=== PATIENT | male | born 1955 | race Caucasian/White ===

== ENCOUNTER 2016-07-31 10:00 | Inpatient (IN) | payer OTHER, MEDICARE ==
[~2016-07-31] VITALS: Ht 175.3 cm; Wt 77.7 kg
[~2016-07-31 10:00] MED LIST: AC325T PO; ALBU10PO INH; AMIT10TA6 PO; ASPI-860 PO; CLPD75T PO; DM/P295L13 PO; DOXE10CA PO; FAMO20TA13 PO; FENO160T PO; FLAX100031 PO; GEMF600T3 PO; GUAI-557 PO; HCA25SU PR; HYDR-3708 PO; Hydromorphone Hcl PO; LOSA1TAB69 PO; NF-ESOM40C PO; NITR0.4T7 SL; OMEP20CA12 PO; OMEP40CA36 PO; OMG1KC PO; ONDAN4ODT PO; ONDN4T PO; OXYC1TAB6 PO; OXYC1TAB8 PO; PANCREAZE 10,51 EACH PO; PANT40TA3 PO; PRAV20TA PO; SUCR1TAB29 PO; TAMS0.4C2 PO
[2016-07-31] MEDS ORDERED: ONDANSETRON 2 MG/ML (Z0FRAN) 2 ML VIAL IV ONE ×2 (10:20→11:45)
[2016-07-31] MEDS ORDERED: SODIUM CHLORIDE FLUSH 10 ML SYR IV PRN (10:20)
[2016-07-31] MEDS ORDERED: SODIUM CHLORIDE FLUSH 3 ML SYR IV PRN (10:20)
[2016-07-31] MEDS ORDERED: FENT1PAT10 TD (10:25)
[2016-07-31] MEDS ORDERED: HYDROmorphone 2 MG/ML (DILAUDID) 1 ML SYRINGE IV ONE ×3 (10:30→13:35)
[2016-07-31 10:34] LABS: MEAN CORPUSCULAR HEMOGLOBIN 30.9 PG (26.0-34.0); MEAN CORPUSCULAR HGB CONC 35.3 g/dL (31.0-37.0); MEAN CORPUSCULAR VOLUME 88 FL (80-100); MEAN PLATELET VOLUME 8.4 FL (6.0-9.5); PLATELET COUNT 631 10^3uL (150-450); WHITE BLOOD COUNT 21.67 10^3uL (4.0-11.0)
[2016-07-31 10:41] LABS: BAND NEUTROPHILS % 1 % (0-6); EOSINOPHILS % 1 % (0-4); LYMPHOCYTES # 2.6 #; MONOCYTES # 1.3 #; MONOCYTES % 6 % (3-11); RBC MORPH NORMAL (NORMAL); SEGMENTED NEUTROPHILS % 79 % (51-67); TOTAL CELLS COUNTED 100
[2016-07-31 10:46] LABS: ALBUMIN 4.4 g/dL (3.4-5.0); ANION GAP 14.9 MEQ/L (3-15); CALCULATED IONIZED CALCIUM 4.1 mg/dL (3.8-4.6); TOTAL PROTEIN 7.8 g/dL (6.4-8.5)
[2016-07-31 13:41] LABS: BILIRUBIN,URINE Negative (Negative); CLARITY,URINE Clear; COLOR,URINE Yellow; GLUCOSE, URINE (UA) Negative (Negative); LEUKOCYTE ESTERASE ,URINE Negative (Negative); UROBILINOGEN,URINE 0.2 mg/dL (0.2-1.0)
--- NOTE | 2016-07-31 13:41 | Diagnostic Imaging Report ---
INDICATION: Pain. FINDINGS: The lungs are clear. There is no evidence for pleural fluid, no free air beneath the diaphragms, no failure. The bowel gas pattern is unremarkable. There are postoperative changes in the right upper quadrant. IMPRESSION: No acute-appearing abnormality. Dictated by: Dictated on workstation # [id number]
[2016-07-31 13:42] LABS: PH,URINE >9.0 (5.0 - 8.0)
--- NOTE | 2016-07-31 13:44 | Diagnostic Imaging Report ---
PROCEDURE: CT abdomen and pelvis with contrast. TECHNIQUE: Multiple contiguous axial images were obtained through the abdomen and pelvis after administration of intravenous contrast. INDICATION: Severe abdominal pain with history of pancreatitis. Exam compared to 03/02/2016. FINDINGS: There has been presumed recurrence of features of pancreatitis, most notably the distal body and tail although the severity of peripancreatic edema and pancreatic thickening are improved when compared to the prior. There is only slight thickening along the left lateral conal fascia with ectasia of the pancreatic duct diffusely. Fatty infiltration of liver noted but improved when compared to the previous exam. Some fluid within the stomach which was not grossly overdilated and no acute fluid collection or pseudocyst and there is no abdominopelvic ascites. Some fluid within the colonic lumen with the colonic mucosa showing mild hyperenhancement. Nonspecific colitis may be present. No large bowel wall thickening or pericolonic edema, however. Some scattered noninflamed sigmoid diverticuli. Infrarenal atherosclerotic aortic ectasia dilates to measure 2.4 cm just prior to its bifurcation without rupture or change. The urinary bladder unremarkable. The kidneys unobstructed and normal. There is no bile duct dilatation. No stones along the course of the nondilated extrahepatic common duct. IMPRESSION: Features suggest mild active pancreatitis, distal body and tail without ascites or acute fluid collection. Improvements in fatty liver with no biliary dilatation. Fluid in the stomach as well as fluid in the large bowel. The large bowel showing questionable findings of mucosal hyperenhancement. Mild colitis could not be excluded. No obstruction, no free air. No findings suggestive of gastric outlet obstruction. Dictated by: Dictated on workstation # [id number]
[2016-07-31 13:50] LABS: RBC,URINE 0-2 /HPF; URINE CENTRIFUGED VOLUME 12 mL
[2016-07-31] MEDS ORDERED: PROMETHAZINE HCL INJ 12.5 MG in SODIUM CHLORIDE 25 ML IV PRN (15:15)
--- NOTE | 2016-07-31 15:15 | NUR ---
ARRIVES PER CART ACCOMPANIED BY ED STAFF AND SPOUSE. ALERT AND ORIENTED X4. SKIN W/P/D. RESP REGULAR AND UNLABORED.
[2016-07-31 15:35] VITALS: BP 126/87
[2016-07-31] MEDS: LACTATED RINGERS 1,000 ML IV SCH ×2 (15:59→21:37)
[2016-07-31] MEDS ORDERED: PANTOPRAZOLE 40 MG (PROTONIX) VIAL IV ONE (16:03)
[2016-07-31] MEDS: HYDROmorphone 1 MG/ML (DILAUDID) SYRINGE IV PRN ×2 (16:07→20:07)
[2016-07-31] MEDS: PANTOPRAZOLE IV 40 MG in SODIUM CHLORIDE FLUSH 10 ML IV SCH (16:08)
--- NOTE | 2016-07-31 16:58 | NUR ---
Pt is awake sitting up in bed, appears to be moaning, SPO2 93% on room air.
[2016-07-31] MEDS ORDERED: NITROGLYCERIN SUBLINGUAL 0.4 MG (NITROQUICK) TABLET SL PRN (17:25)
[2016-07-31] MEDS ORDERED: ALBUTEROL HFA (VENTOLIN HFA) COMMON CANNISTER IH PRN (17:25)
[2016-07-31] MEDS ORDERED: DOCUSATE SODIUM 100 MG (COLACE) CAP PO PRN (17:35)
[2016-07-31] MEDS ORDERED: MAGNESIUM HYDROXIDE 80MG/ML (MILK OF MAGNESIA) 30 ML UDC PO PRN (17:35)
--- NOTE | 2016-07-31 17:40 | History and Physical (E) ---
History & Physical PCP: Winston Rizo MD CC: Abdominal pain, nausea, vomiting HPI Peter Bryan is a 61 year old male admitted from ED 07/31 where he presented with complaint of LUQ pain and nausea/vomiting which he felt was a flare of pancreatitis. Vitals were unremarkable but WBC was 21.67 with 79% N and 1% bands , CRP 1.20, Amylase 134, Lipase 843, and CT was consistent with pancreatitis. He was given NS bolus, hydromorphone, ondansetron, and was admitted for further management. On arrival to unit, awake, alert, interactive, oriented. Starting to feel better in terms of pain and nausea. Able to relate history. Onset of abdominal and nausea this early AM. Pain started around 0500 and started vomiting 0800. Tried taking ondansetron and oral pain medication but couldn't get control of symptoms, especially pain. [place] it was getting worse so came to ED. Uncertain trigger. No alcohol at all. No new foods. Has had no fever/chills. No diarrhea. In fact, is more often constipated and takes milk of magnesia regularly because of chronic narcotic use. Regarding GI issues, had been seeing Dr. Williamson at gastroenterology in [place]. Hasn't been for follow-up in a while, but has been stable until today. PMH * Chronic pancreatitis * Rheumatic fever * Pericarditis * Hiatal Hernia * History of hydrocephalus * PVD * Insomnia * Barretts esophagus * Esophageal Spasms * HTN * HLD * GERD * History of diarrhea * Urine hesitancy * AAA 1.5 cm * Hemorrhoids * Asthma PSH * Cholecystectomy 07-05-14 * Ventricular shunt for hydrocephalus in 1999 * Appendectomy * Tonsillectomy * EGD * Colonoscopy * Left leg stent * ERCP? ALLERGIES: Please see list at end of report. HOME MEDICATIONS: Please see list at end of report. FH Mother had a stroke, HTN, Diabetes, cancer. Father had brain cancer, Sister had HTN, diabetes, of an VT. Parents and sister are . SH , History of smoking but no alcohol, no history of drug abuse. Had worked at [employer] but now on disability. ROS CONSTITUTION: Weight has been down about 10 pounds for the last 1 month. HEENT: Feels his visual acuity is getting worse, but no acute changes. No sores in mouth, sore throat. CV: Some intermittent chest discomfort. PULM: Some cough. GI: Per HPI, exam. : Slow urine stream. MS: No new muscle or joint aches and pains. NEURO: Left arm numbness sometimes after falling asleep. INTEG: Some intermittent paronychia. But currently, not inflamed. ENDO: No heat or cold intolerance. No polydipsia or polyuria. HEME/LYMPH: No easy bruising or bleeding. No swollen glands. PSYCH: No change in mood or behavior. OBJECTIVE Vital Signs Date Time Temp Pulse Resp B/P Pulse Ox O2 Delivery O2 Flow Rate FiO2 07/31/16 11:02 88 2 07/31/16 10:02 98.6 61 20 118/76 GEN: Awake, alert, oriented, NAD at present. HEENT: EOMI, PERRL, dry oral mucosa. CV: RRR S1 S2 normal with no murmur LUNGS: CTA B with diminished bases, no R/R/W. ABD: Soft, mildly distended, tender diffusely. Hypoactive bowel sounds. EXTR: No C/C/E. Normal peripheral pulses. INTEG: No rash. Bronze complexion. NEURO: No focal motor neuro deficit. Laboratory Results-14 Days 07/31/16 10:25: Absolute Band Neutrophils 0.2, Alanine Aminotransferase (ALT/SGPT) 34, Albumin 4.4#, Albumin/Globulin Ratio 1.294, Alkaline Phosphatase 73, Amylase Level 134H , Anion Gap 14.9, Aspartate Amino Transf (AST/SGOT) 39H, BUN/Creatinine Ratio 9L , Band Neutrophils % 1, Basophils # (Auto) , Basophils # (Manual) 0.2, Basophils % (Manual) 1, Basophils (%) (Auto) , Blood Morphology Comment Normal, Blood Urea Nitrogen 11, C-Reactive Protein 1.20H, Calcium Level 9.8, Calcium/ Ionized Calcium Ratio 4.1, Calculated Osmolality 268L, Carbon Dioxide Level 30H , Chloride Level 98, Creatinine 1.27, Differential Total Cells Counted 100, Eosinophils # 0.2, Eosinophils # (Auto) , Eosinophils % (Manual) 1, Eosinophils (%) (Auto) , Estimat Glomerular Filtration Rate 70.2, Estimated GFR (Non- 58.1, Glucose Level 107, Hematocrit 43.90, Hemoglobin 15.5, Lipase 843H, Lymphocytes # 2.6, Lymphocytes # (Auto) , Lymphocytes % (Manual) 12L, Lymphocytes (%) (Auto) , Mean Corpuscular Hemoglobin 30.9, Mean Corpuscular Hemoglobin Concent 35.3, Mean Corpuscular Volume 88, Mean Platelet Volume 8.4, Monocytes # 1.3, Monocytes # (Auto) , Monocytes % (Manual) 6, Monocytes (%) (Auto) , Neutrophils # 17.1, Neutrophils # (Auto) , Neutrophils (% ) (Auto) , Platelet Count 631H, Potassium Level 3.7, Red Blood Count 5.02, Red Cell Distribution Width 14.2, Segmented Neutrophils % 79H, Sodium Level 139, Total Bilirubin 0.9#, Total Protein 7.8, White Blood Count 21.67H 07/31/16 13:20: Urine Bacteria None seen, Urine Bilirubin Negative, Urine Clarity Clear, Urine Collection Type Clean catch, Urine Color Yellow, Urine Glucose (UA) Negative, Urine Hyaline Casts Rare, Urine Ketones Negative, Urine Leukocyte Esterase Negative, Urine Nitrite Negative, Urine Protein TraceH, Urine RBC 0-2, Urine RBC (Auto) Negative, Urine Specific [place] 1.015, Urine Squamous Epithelial Cells 0-2, Urine Urobilinogen 0.2, Urine WBC None seen, Urine pH >9.0, Volume Urine Centrifuged 12 ml 07/31/16 13:35: Stool Occult Blood Negative IMAGING 07/31/16 ACUTE ABD SERIES INDICATION: Pain. FINDINGS: The lungs are clear. There is no evidence for pleural fluid, no free air beneath the diaphragms, no failure. The bowel gas pattern is unremarkable. There are postoperative changes in the right upper quadrant. IMPRESSION: No acute-appearing abnormality. 07/31/16 CT ABDOMEN/PELVIS W PROCEDURE: CT abdomen and pelvis with contrast. TECHNIQUE: Multiple contiguous axial images were obtained through the abdomen and pelvis after administration of intravenous contrast. INDICATION: Severe abdominal pain with history of pancreatitis. Exam compared to 03/02/2016. FINDINGS: There has been presumed recurrence of features of pancreatitis, most notably the distal body and tail although the severity of peripancreatic edema and pancreatic thickening are improved when compared to the prior. There is only slight thickening along the left lateral conal fascia with ectasia of the pancreatic duct diffusely. Fatty infiltration of liver noted but improved when compared to the previous exam. Some fluid within the stomach which was not grossly overdilated and no acute fluid collection or pseudocyst and there is no abdominopelvic ascites. Some fluid within the colonic lumen with the colonic mucosa showing mild hyperenhancement. Nonspecific colitis may be present. No large bowel wall thickening or pericolonic edema, however. Some scattered noninflamed sigmoid diverticuli. Infrarenal atherosclerotic aortic ectasia dilates to measure 2.4 cm just prior to its bifurcation without rupture or change. The urinary bladder unremarkable. The kidneys unobstructed and normal. There is no bile duct dilatation. No stones along the course of the nondilated extrahepatic common duct. IMPRESSION: Features suggest mild active pancreatitis, distal body and tail without ascites or acute fluid collection. Improvements in fatty liver with no biliary dilatation. Fluid in the stomach as well as fluid in the large bowel. The large bowel showing questionable findings of mucosal hyperenhancement. Mild colitis could not be excluded. No obstruction, no free air. No findings suggestive of gastric outlet obstruction. ASSESSMENT Peter Bryan is a 61 year old male admitted from ED 07/31 with recurrent acute pancreatitis in the setting chronic pancreatitis. He had elevated WBC but did not meet SIRS criteria. PLAN * Acute on Chronic Pancreatitis: BISAP 0. Bowel rest, IVF, treat pain and nausea. Resume pancreatic enzymes when taking PO. * Abdominal Pain: Ketorolac scheduled, hydromorphone PRN. Note he as chronic pain meds including fentanyl patch. * Nausea/Vomiting: Ondansetron, promethazine. * Thrombocytosis: Chronic. Observe. * F/E/N: IVF. Peripheral IV. NPO. * Prophylaxis: Enoxaparin * Code Status: Full * Dispo: Inpatient, expecting 3 day stay. CHRONIC ISSUES Some PO meds on hold until tolerating PO. * Tobacco abuse: Nicotine patch. 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 * PVD: Clopidogrel, aspirin * COPD: Albuterol * Insomnia: Amitriptyline * GERD, Gilman's Esophagus: Sub pantoprazole for famotidine. * Hypertriglyceridemia: Fenofibrate, flaxseed oil, omega 3. * BPH: History of taking tamsulosin * Esophageal Spasm: Nitro PRN. * Insomnia: Amitriptyline * Chronic Abdominal Pain, Chronic Pancreatitis: Fentanyl patch. Pancrelipase. Allergies/Home Medications Allergies: Coded Allergies: Xpidrjr-Pjj-Nvs Reductase Inhibitor (Verified Allergy, Intermediate, Hemorrhoids, bloody stools, 06/14/16) Uncoded Allergies: TAPE (Adverse Reaction, Mild, SKIN BREAKDOWN, 12/22/13) Reported Home Medications Scheduled Amitriptyline HCl (Amitriptyline HCl) 10 MG PO HS (Reported) Aspirin (Aspirin) 81 MG PO DAILY (Reported) Clopidogrel Bisulfate (Clopidogrel) 75 MG PO DAILY (Reported) Fenofibrate (Fenofibrate) 160 MG PO DAILY (Reported) Fentanyl (Fentanyl Patch 75mcg/hr) 1 EACH TD NEEDED (Reported) Flaxseed Oil (Flax Seed Oil) 1,000 MG PO DAILY (Reported) Lipase/Protease/Amylase (Pancreaze 10,[address]) 1 EACH PO TIDWM (Reported ) Ray 3 Polyunsat Fatty Acids (Fish Oil) 1,000 MG PO DAILY (Reported) Ondansetron HCl (Zofran) 4 MG PO Q8H (Reported) Pantoprazole Sod (Protonix Tab) 40 MG PO BID Scheduled PRN Acetaminophen (Acetaminophen) 650 MG PO Q6H PRN PRN PAIN (Reported) Albuterol Sulfate (Albuterol Sulfate) 1 PUFF INH Q4H PRN PRN DYSPNEA (Reported) Nitroglycerin (Nitroglycerin) 0.4 MG SL PRN ESOPHAGEAL SPASM (Reported) Oxycodone HCl/Acetaminophen (Oxycodone-Acetaminophen 5-325) 1-2 EACH PO Q4H PRN PRN PAIN (Reported) Discontinued Medications Dm/P-Ephed/Acetaminoph/Doxylam (Nyquil D Cold & Flu Liquid) 30 ML PO Q6H PRN PRN NEEDED (Reported) Discontinued Reason: No longer required Famotidine (Pepcid) 20 MG PO BID (Reported) Discontinued Reason: Therapy changed Guaifenesin/Dextromethorphan (Tussin DM Liquid) 2 TSP PO NEEDED (Reported) Discontinued Reason: No longer required Omeprazole (Omeprazole) 40 MG PO BID (Reported) Discontinued Reason: No longer required Tamsulosin HCl (Tamsulosin HCl) 0.4 MG PO DAILY (Reported) Discontinued Reason: No longer required Copies to: End of Report . FRANCISCA WILSON MD Jul 31, 2016 14:29
[2016-07-31] MEDS: KETOROLAC 15 MG/ML (TORADOL) 1 ML VIAL IV SCH (17:56)
[2016-07-31] MEDS: NICOTINE 21 MG (NICODERM) PATCH TD SCH (17:57)
[2016-07-31] MEDS ORDERED: MAG HYDROX/AL HYDROX/SIMETH 200-200-20/5 ML (MAG-AL PLUS) 30 ML UDC PO PRN (18:05)
--- NOTE | 2016-07-31 18:07 | NUR ---
COMPLAINING OF HEARTBURN. STATES USUALLY TAKES PEPCID. DR. WILSON NOTIFIED.
[2016-07-31] MEDS: POLYETHYLENE GLYCOL 17 GM (MIRALAX) PACKET PO SCH (18:30)
[2016-07-31] MEDS: AMITRIPTYLINE 10 MG (ELAVIL) TAB PO SCH (21:37)
[2016-08-01] VITALS: BP 116/62
[2016-08-01] MEDS: HYDROmorphone 1 MG/ML (DILAUDID) SYRINGE IV PRN ×5 (00:05→20:33)
[2016-08-01] MEDS: LACTATED RINGERS 1,000 ML IV SCH ×3 (04:50→18:06)
--- NOTE | 2016-08-01 05:32 | NUR ---
Pt is sitting up in bed visiting with at beginning of shift, does report pain 7/10, gave Dilaudid 2mg SIVP for discomfort at this time. 2318-Complain of pain, gave scheduled Toradol 15mg SIVP for discomfort. 0005-Reports pain 8/10, gave Dilaudid 2mg SIVP for discomfort. 0250-Pt reports pain 7/10, gave Dilaudid 2mg SIVP for discomfort. Pt is currently resting in bed asleep, call light within reach, will continue to monitor.
[2016-08-01 06:30] LABS: BASOPHILS % (AUTO) 0 % (0-2); EOSINOPHILS # (AUTO) 0.3 10^3uL; EOSINOPHILS % (AUTO) 3 % (0-4); MEAN CORPUSCULAR HEMOGLOBIN 30.6 PG (26.0-34.0); MEAN CORPUSCULAR HGB CONC 33.8 g/dL (31.0-37.0); MEAN CORPUSCULAR VOLUME 91 FL (80-100); MEAN PLATELET VOLUME 8.4 FL (6.0-9.5); MONOCYTES # (AUTO) 0.9 X10^3; MONOCYTES % (AUTO) 9 % (3-11); NEUTROPHILS # (AUTO) 7.1 X10^3; NEUTROPHILS % (AUTO) 69 % (51-67); PLATELET COUNT 529 10^3uL (150-450); WHITE BLOOD COUNT 10.37 10^3uL (4.0-11.0)
[2016-08-01] MEDS: KETOROLAC 15 MG/ML (TORADOL) 1 ML VIAL IV SCH ×5 (06:31→23:47)
[2016-08-01 06:55] LABS: ALBUMIN 3.1 g/dL (3.4-5.0); ANION GAP 11.1 MEQ/L (3-15); PHOSPHORUS 3.4 mg/dL (2.4-4.9)
[2016-08-01 08:26] VITALS: BP 106/59
[2016-08-01] MEDS: PATCH REMOVAL TOP SCH ×2 (09:00)
[2016-08-01] MEDS: PANTOPRAZOLE IV 40 MG in SODIUM CHLORIDE FLUSH 10 ML IV SCH (09:02)
[2016-08-01] MEDS: POLYETHYLENE GLYCOL 17 GM (MIRALAX) PACKET PO SCH (09:04)
[2016-08-01] MEDS: fentaNYL PATCH 75 MCG (DURAGESIC) TD SCH ×2 (09:07→15:47)
--- NOTE | 2016-08-01 09:07 | NUR ---
Pt resting quietly in bed- seems comfortable. Wakes easily to this nurse entering room with knock. Fentanyl patch as ordered placed to Left upper back Nicotine patch as ordered placed to Rt upper arm. IVF infusing at 150ml/hr into 20g in RFA without difficulty. Pt denies need for extra pain meds at this time. will cont to monitor.
[2016-08-01] MEDS: NICOTINE 21 MG (NICODERM) PATCH TD SCH (09:08)
[2016-08-01] MEDS: CLOPIDOGREL 75 MG (PLAVIX) TAB PO SCH (09:09)
[2016-08-01] MEDS: ENOXAPARIN 40 MG/0.4 ML (LOVENOX) SYR SC SCH (09:09)
[2016-08-01] MEDS: ASPIRIN 81 MG CHEW (CHILDREN'S ASA) PO SCH (09:09)
--- NOTE | 2016-08-01 10:30 | NUR ---
Dr. Elliott notified of c/o expectorating yellow mucus and request for decongestant- will address this - no new orders.
[2016-08-01] MEDS ORDERED: LIPA1CAP67 PO ×2 (11:17→13:05)
[2016-08-01] MEDS ORDERED: FLUT16SP NSEACH (11:17)
[2016-08-01] MEDS ORDERED: RANI300C PO (11:17)
[2016-08-01] MEDS ORDERED: POTA20LI PO (11:17)
[2016-08-01] MEDS ORDERED: AMIT25TA9 PO (11:17)
--- NOTE | 2016-08-01 11:29 | NUR ---
Pt ambulating halls with
[2016-08-01] MEDS ORDERED: MENTHOL TOP PRN (11:50)
[2016-08-01] MEDS ORDERED: CAMPHOR TOP PRN (11:50)
[2016-08-01] MEDS ORDERED: SALINE NASAL SPRAY (OCEAN) 45 ML BTL PRN (11:50)
--- NOTE | 2016-08-01 11:57 | Progress Note (E) ---
Progress Note SUBJECTIVE No issues reported overnight. Last dose of hydromorphone was 0200 this AM. Nausea controlled. Complains of nasal congestion/cold symptoms. Added nasal saline and guaifenesin. WBC normalized. Chemistry stable. CRP only 2.90 today. Continuing bowel rest with plan to try CLD in AM. OBJECTIVE Vital Signs Date Time Temp Pulse Resp B/P Pulse Ox O2 Delivery O2 Flow Rate FiO2 08/01/16 08:26 98.1 95 16 106/59 95 Room air 08/01/16 00:00 0.00 I & O 07/31/16 08/01/16 Cumulative From/Thru 18:59 06:59 07/31/16 10:02 - 08/01/16 06:11 Intake Total 1285 ml 1285 ml Output Total 400 ml 400 ml Balance 885 ml 885 ml GEN: Awake, alert, oriented, NAD at present. HEENT: EOMI, PERRL, dry oral mucosa. Nasal congestion. CV: RRR S1 S2 normal with no murmur LUNGS: CTA B with diminished bases, no R/R/W. ABD: Soft, no distension. Very mild tenderness. Hypoactive bowel sounds. EXTR: No C/C/E. Normal peripheral pulses. INTEG: No rash. Bronze complexion. NEURO: No focal motor neuro deficit. Lab-Past 14 Days, 35 Results 07/31/16 10:25: Absolute Band Neutrophils 0.2, Alanine Aminotransferase (ALT/SGPT) 34, Albumin 4.4#, Albumin/Globulin Ratio 1.294, Alkaline Phosphatase 73, Amylase Level 134H , Anion Gap 14.9, Aspartate Amino Transf (AST/SGOT) 39H, BUN/Creatinine Ratio 9L , Band Neutrophils % 1, Basophils # (Auto) , Basophils # (Manual) 0.2, Basophils % (Manual) 1, Basophils (%) (Auto) , Blood Morphology Comment Normal, Blood Urea Nitrogen 11, C-Reactive Protein 1.20H, Calcium Level 9.8, Calcium/ Ionized Calcium Ratio 4.1, Calculated Osmolality 268L, Carbon Dioxide Level 30H , Chloride Level 98, Creatinine 1.27, Differential Total Cells Counted 100, Eosinophils # 0.2, Eosinophils # (Auto) , Eosinophils % (Manual) 1, Eosinophils (%) (Auto) , Estimat Glomerular Filtration Rate 70.2, Estimated GFR (Non- 58.1, Glucose Level 107, Hematocrit 43.90, Hemoglobin 15.5, Lipase 843H, Lymphocytes # 2.6, Lymphocytes # (Auto) , Lymphocytes % (Manual) 12L, Lymphocytes (%) (Auto) , Mean Corpuscular Hemoglobin 30.9, Mean Corpuscular Hemoglobin Concent 35.3, Mean Corpuscular Volume 88, Mean Platelet Volume 8.4, Monocytes # 1.3, Monocytes # (Auto) , Monocytes % (Manual) 6, Monocytes (%) (Auto) , Neutrophils # 17.1, Neutrophils # (Auto) , Neutrophils (% ) (Auto) , Platelet Count 631H, Potassium Level 3.7, Red Blood Count 5.02, Red Cell Distribution Width 14.2, Segmented Neutrophils % 79H, Sodium Level 139, Total Bilirubin 0.9#, Total Protein 7.8, White Blood Count 21.67H 07/31/16 13:20: Urine Bacteria None seen, Urine Bilirubin Negative, Urine Clarity Clear, Urine Collection Type Clean catch, Urine Color Yellow, Urine Glucose (UA) Negative, Urine Hyaline Casts Rare, Urine Ketones Negative, Urine Leukocyte Esterase Negative, Urine Nitrite Negative, Urine Protein TraceH, Urine RBC 0-2, Urine RBC (Auto) Negative, Urine Specific [place] 1.015, Urine Squamous Epithelial Cells 0-2, Urine Urobilinogen 0.2, Urine WBC None seen, Urine pH >9.0, Volume Urine Centrifuged 12 ml 07/31/16 13:35: Stool Occult Blood Negative 08/01/16 06:13: Albumin 3.1#L, Anion Gap 11.1, Basophils # (Auto) 0.0, Basophils (%) (Auto) 0, Blood Urea Nitrogen 14, C-Reactive Protein 2.90H, Calcium Level 8.5L, Carbon Dioxide Level 29, Chloride Level 105, Creatinine 1.09, Eosinophils # (Auto) 0.3 , Eosinophils (%) (Auto) 3, Estimat Glomerular Filtration Rate 83.8, Estimated GFR (Non- 69.2, Glucose Level 72#, Hematocrit 37.60L, Hemoglobin 12.7L, Lymphocytes # (Auto) 2.0, Lymphocytes (%) (Auto) 19L, Mean Corpuscular Hemoglobin 30.6, Mean Corpuscular Hemoglobin Concent 33.8, Mean Corpuscular Volume 91, Mean Platelet Volume 8.4, Monocytes # (Auto) 0.9, Monocytes (%) (Auto) 9, Neutrophils # (Auto) 7.1, Neutrophils (%) (Auto) 69H, Platelet Count 529H, Potassium Level 3.7, Red Blood Count 4.15L, Red Cell Distribution Width 14.1, Sodium Level 141, White Blood Count 10.37, Phosphorus Level 3.4# IMAGING 07/31/16 ACUTE ABD SERIES INDICATION: Pain. FINDINGS: The lungs are clear. There is no evidence for pleural fluid, no free air beneath the diaphragms, no failure. The bowel gas pattern is unremarkable. There are postoperative changes in the right upper quadrant. IMPRESSION: No acute-appearing abnormality. 07/31/16 CT ABDOMEN/PELVIS W PROCEDURE: CT abdomen and pelvis with contrast. TECHNIQUE: Multiple contiguous axial images were obtained through the abdomen and pelvis after administration of intravenous contrast. INDICATION: Severe abdominal pain with history of pancreatitis. Exam compared to 03/02/2016. FINDINGS: There has been presumed recurrence of features of pancreatitis, most notably the distal body and tail although the severity of peripancreatic edema and pancreatic thickening are improved when compared to the prior. There is only slight thickening along the left lateral conal fascia with ectasia of the pancreatic duct diffusely. Fatty infiltration of liver noted but improved when compared to the previous exam. Some fluid within the stomach which was not grossly overdilated and no acute fluid collection or pseudocyst and there is no abdominopelvic ascites. Some fluid within the colonic lumen with the colonic mucosa showing mild hyperenhancement. Nonspecific colitis may be present. No large bowel wall thickening or pericolonic edema, however. Some scattered noninflamed sigmoid diverticuli. Infrarenal atherosclerotic aortic ectasia dilates to measure 2.4 cm just prior to its bifurcation without rupture or change. The urinary bladder unremarkable. The kidneys unobstructed and normal. There is no bile duct dilatation. No stones along the course of the nondilated extrahepatic common duct. IMPRESSION: Features suggest mild active pancreatitis, distal body and tail without ascites or acute fluid collection. Improvements in fatty liver with no biliary dilatation. Fluid in the stomach as well as fluid in the large bowel. The large bowel showing questionable findings of mucosal hyperenhancement. Mild colitis could not be excluded. No obstruction, no free air. No findings suggestive of gastric outlet obstruction. ASSESSMENT Peter Bryan is a 61 year old male admitted from ED 07/31 with recurrent acute pancreatitis in the setting chronic pancreatitis. He had elevated WBC but did not meet SIRS criteria. PLAN * Acute on Chronic Pancreatitis: BISAP 0. Bowel rest, IVF, treat pain and nausea. Resume pancreatic enzymes when taking PO. * Abdominal Pain: Ketorolac scheduled, hydromorphone PRN. Note he as chronic pain meds including fentanyl patch. * Nausea/Vomiting: Ondansetron, promethazine. * Thrombocytosis: Chronic. Observe. * URI: Supportive care. Guaifenesin, nasal saline spray, Mentholatum ointment. * F/E/N: IVF. Peripheral IV. NPO. Possible advance to CLD 08/02. * Prophylaxis: Enoxaparin * Code Status: Full * Dispo: Inpatient, expecting 3 day stay. CHRONIC ISSUES Some PO meds on hold until tolerating PO. * Tobacco abuse: Nicotine patch. 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 * PVD: Clopidogrel, aspirin * COPD: Albuterol * Insomnia: Amitriptyline * GERD, Gilman's Esophagus: Sub pantoprazole for famotidine. * Hypertriglyceridemia: Fenofibrate, flaxseed oil, omega 3. * BPH: History of taking tamsulosin * Esophageal Spasm: Nitro PRN. * Insomnia: Amitriptyline * Chronic Abdominal Pain, Chronic Pancreatitis: Fentanyl patch. Pancrelipase. FRANCISCA WILSON MD Aug 01, 2016 11:53
[2016-08-01] MEDS: guaiFENesin ER 600 MG (MUCINEX) TAB PO SCH ×2 (12:44→20:32)
[2016-08-01] MEDS ORDERED: CALC-894 PO (13:05)
[2016-08-01] MEDS ORDERED: HDR2T PO (13:05)
[2016-08-01] MEDS ORDERED: [UNRECOGNIZED DRUG - CODE] PO (13:05)
[2016-08-01] MEDS ORDERED: FERR-74 PO (13:05)
[2016-08-01] MEDS ORDERED: ALBU8.5H2 INH (13:05)
[2016-08-01] MEDS ORDERED: MULT-850 PO (13:05)
[2016-08-01] MEDS ORDERED: DOCU-34 PO (13:05)
[2016-08-01] MEDS ORDERED: ONDAN4ODT PO (13:05)
--- NOTE | 2016-08-01 13:06 | NUR ---
MED REC COMPLETED-current med list obtained from Ext Med History application, retail pharmacy, and patient interview.
[2016-08-01] MEDS: ONDANSETRON 2 MG/ML (Z0FRAN) 2 ML VIAL IV PRN ×2 (14:38→20:33)
[2016-08-01 15:45] VITALS: BP 141/82
--- NOTE | 2016-08-01 15:51 | NUR ---
New Fentanyl patch placed on pt's LOY at this time d/t old patch falling off in shower. Old patch disposed of properly by this nurse. Pt denies needs.
[2016-08-01] MEDS: AMITRIPTYLINE 10 MG (ELAVIL) TAB PO SCH (20:32)
--- NOTE | 2016-08-01 20:33 | NUR ---
Pt took evening medications without difficulty. Rates pain at 6/10 with nausea, too. Administered Dilaudid 2 mg and Zofran 4 mg IV. No other needs. Call light in reach. at bedside.
--- NOTE | 2016-08-01 21:55 | NUR ---
Pt ambulating in yoder with . Reports feeling a little better. No needs at this time.
--- NOTE | 2016-08-01 23:50 | NUR ---
Pt c/o indigestion/acid reflux. Gave Mag-Al. Pt took without difficulty. Will continue to monitor. Denies other needs.
[2016-08-02 00:11] VITALS: BP 137/89
[2016-08-02] MEDS: LACTATED RINGERS 1,000 ML IV SCH ×2 (00:22→07:08)
[2016-08-02] MEDS: KETOROLAC 15 MG/ML (TORADOL) 1 ML VIAL IV SCH ×2 (05:24→11:39)
--- NOTE | 2016-08-02 05:27 | NUR ---
Pt sitting up in chair, awake. Reports discomfort at 6/10. Toradol scheduled dose administered IV. Pt has slept off and on tonight. Denies other needs now. Encouraged pt to call if he needed anything else. Call light in reach,
[2016-08-02 08:00] VITALS: BP 140/83
[2016-08-02] MEDS: ENOXAPARIN 40 MG/0.4 ML (LOVENOX) SYR SC SCH (08:52)
[2016-08-02] MEDS: PANTOPRAZOLE IV 40 MG in SODIUM CHLORIDE FLUSH 10 ML IV SCH (08:53)
[2016-08-02] MEDS: POLYETHYLENE GLYCOL 17 GM (MIRALAX) PACKET PO SCH (08:53)
[2016-08-02] MEDS: NICOTINE 21 MG (NICODERM) PATCH TD SCH (08:53)
[2016-08-02] MEDS: ASPIRIN 81 MG CHEW (CHILDREN'S ASA) PO SCH (08:53)
[2016-08-02] MEDS: HYDROmorphone 1 MG/ML (DILAUDID) SYRINGE IV PRN (08:53)
[2016-08-02] MEDS: CLOPIDOGREL 75 MG (PLAVIX) TAB PO SCH (08:53)
[2016-08-02] MEDS: guaiFENesin ER 600 MG (MUCINEX) TAB PO SCH ×2 (08:53→20:22)
--- NOTE | 2016-08-02 08:53 | NUR ---
Pt awake in room- tried clear liquid diet but stopped after drinking some from tray, due to abd pain rated 5/10. IVF cont to infuse at 150ml/hr. Requested pain meds- Dilaudid 2mg IV given now. Fresh coffee provided- patient states, "If it hurts too much, I'll stop." Miralax mixed in juice.
[2016-08-02] MEDS: PATCH REMOVAL TOP SCH (08:54)
--- NOTE | 2016-08-02 09:38 | NUR ---
NUTRITION ASSESSMENT Level 1 Patient: Peter Bryan Age/Sex: 61/M Date Screened: 08-02-16 Weight: 170.9#/77.7 kg Height: 69 inches Primary Diagnosis: pancreatitis Diet Order: CL Relevant labs: stool occult blood (-), glucose 72 Food allergies: N Nutrition Assessment Criteria Age over 80: N Body Mass Index (BMI) under 19: N Admission Screening Indicates Risk? N Moderate/High Risk Diagnosis: 3 points TPN or PPN: N NPO or clear liquid diet: Yes Serum Glucose <70 or >180: N Hgb A1c >6.7: N/A Total: 3 points Risk Screen: __ Patient at low nutritional risk based on available data; reevaluate in 5-7 days _X_ Patient at moderate nutritional risk based on available data; reevaluate in 3-5 days __ Patient at high nutritional risk; complete Nutrition Assessment within 48 hours of admission. Comments: Noted in H&P that pt. reported 10# weight loss; however, he weighed 167# 11-21-16 at ED visit so weight has been stable (is actually up 3#.) Diet advanced to CL; will reassess as documented above if not improving as expected. Pt. follows low-fat diet at home for chronic pancreatitis.
[2016-08-02] MEDS: HYDROmorphone 2 MG/ML (DILAUDID) 1 ML SYRINGE IV PRN ×4 (13:41→22:31)
--- NOTE | 2016-08-02 13:41 | NUR ---
Dilaudid 2mg IV given at this time for c/o 01/01 abdominal pain- Has been up walking halls earlier today with . States he will shower tomorrow. Thankful for cares received here at [facility].
[2016-08-02] MEDS ORDERED: AMYLASE PO PRN ×2 (14:25)
[2016-08-02] MEDS ORDERED: LIPASE PO PRN ×2 (14:25)
[2016-08-02] MEDS ORDERED: PROTEASE PO PRN ×2 (14:25)
[2016-08-02 16:00] VITALS: BP 136/76
[2016-08-02] MEDS: AMYLASE PO SCH ×2 (17:35)
[2016-08-02] MEDS: PROTEASE PO SCH ×2 (17:35)
[2016-08-02] MEDS: LIPASE PO SCH ×2 (17:35)
--- NOTE | 2016-08-02 17:41 | Progress Note-A/P (E) ---
Progress Note Subjective: Patient continues to improve, although slowly. He did have some CLD today, he had some increase in pain, which he states is common for him when resolving his pancreatitis. Discussed care and plan. Questions answered. Objective: Current Medications Acetaminophen 650 mg Q6H PRN PO Ondansetron 4 mg Q6H PRN IV Promethazine Q6H PRN IV Enoxaparin 40 mg DAILY SC Pantoprazole DAILY IV Amitriptyline 10 mg HS PO Clopidogrel 75 mg DAILY PO Nitroglycerin 0.4 mg Q4H PRN SL Fentanyl 75 mcg Q72H TD Albuterol Sulfate Hfa Cc 1-2 PUFFS Q4H PRN IH Aspirin 81 mg DAILY PO Polyethylene Glycol 17 gm DAILY PO Docusate 100 mg BID PRN PO Magnesium Hydroxide 30 ml QID PRN PO Nicotine 21 mg DAILY TD Al Hydrox/Mg Hydrox/Simethicone 30 ml Q4H PRN PO Guaifenesin 1,200 mg BID PO Hydromorphone 1-2 mg Q2H PRN IV Amylase/Lipase/ Protease 5,000 Dr Capsule 4 each TIDWM PO and 2 each TID PRN PO Vital Signs Date Time Temp Pulse Resp B/P Pulse Ox O2 Delivery O2 Flow Rate FiO2 08/02/16 16:00 96.5 76 18 136/76 96 Room air 08/01/16 00:00 0.00 I & O Past 24 hrs 08/02/16 07:00 Intake Total 3838 ml Output Total 775 ml Balance 3063 ml IV Total 3838 ml Output Urine Total 775 ml # Bowel Movements 1 Physical Exam General--Awake and alert. No distress. HEENT--Normocephalic. MMM in oral cavity. Lungs--Clear to auscultation bilaterally. Nonlabored respirations. Heart--RRR. Abdomen--Normal bowel sounds. Soft. Nondistended. Nontender. Extremities--No edema to lower extremities. Imaging Results 07.31.16 Abdominal film IMPRESSION: No acute-appearing abnormality. 07.31.16 CT Abd/pelvis IMPRESSION: Features suggest mild active pancreatitis, distal body and tail without ascites or acute fluid collection. Improvements in fatty liver with no biliary dilatation. Fluid in the stomach as well as fluid in the large bowel. The large bowel showing questionable findings of mucosal hyperenhancement. Mild colitis could not be excluded. No obstruction, no free air. No findings suggestive of gastric outlet obstruction. Assessment/Plan Acute on Chronic Pancreatitis Imaging noted above. BISAP 0. Bowel rest, IVF, treat pain and nausea. Resumed pancreatic enzymes today. Advancing diet slowly, CLD for now. Abdominal Pain Ketorolac scheduled, hydromorphone PRN. Note he has chronic pain meds including fentanyl patch. Nausea/Vomiting Improving with ondansetron and promethazine. Thrombocytosis Chronic. Observe. URI Supportive care. Guaifenesin, nasal saline spray, Mentholatum ointment. Tobacco abuse Nicotine patch. 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 PVD Will restart home clopidogrel and aspirin when tolerating po. COPD Continue home albuterol. Insomnia Continue home amitriptyline when tolerating po. GERD/Gilman's Esophagus Sub pantoprazole for famotidine. Hypertriglyceridemia Continue home fenofibrate, flaxseed oil, and omega 3. Esophageal Spasm Nitro PRN per home dose. Chronic Abdominal Pain Fentanyl patch. FEN IVF. Peripheral IV. NPO. Possible advance to CLD 08/02. Electrolytes normal. Prophylaxis Enoxaparin Code Status Full Code. Dispo Inpatient, expecting 3 day stay. YOBANI STEELE MD Aug 02, 2016 17:41
--- NOTE | 2016-08-02 18:02 | NUR ---
During clear liquid supper, patient made comment that he was having a hard to time swallowing throughout afternoon. While in room talking to his , I was observing him trying to drink chicken broth- before he could get it swallowed, he had changed positions in bed to sit straight up, starred off "concentrating on swallowing"he later told me, and then finally after taking a little more chicken broth in his mouth, was able to swallow. Pt expresses frustration with this difficulty- "I can't control it." No other neuro findings at this time. Dr. Mason notified. No new orders at this time.
[2016-08-02 18:13] VITALS: BP 145/94
[2016-08-02] MEDS: ONDANSETRON 2 MG/ML (Z0FRAN) 2 ML VIAL IV PRN (18:22)
--- NOTE | 2016-08-02 18:26 | NUR ---
Pt to Rad for CT of head. Zofran IV given now for emesis of approx 240ml- states "it was chicken broth that I just finished." at bedside. Addendum: 08/02/16 at 1827 by Janina Grayson RN Neuros intact- no changes.
--- NOTE | 2016-08-02 18:55 | Diagnostic Imaging Report ---
PROCEDURE: CT head without contrast. TECHNIQUE: Multiple contiguous axial images were obtained through the brain without the use of intravenous contrast. INDICATION: Swallowing difficulty, NPH. COMPARISON: 05/14/2015. FINDINGS: The right-entering shunt appears to be in good position. The ventricular size is stable. There is no acute ischemia or hemorrhage. No midline shift or mass effect is seen. The bony calvarium is unremarkable. Paranasal sinuses and mastoids are clear. IMPRESSION: 1. Stable-appearing right-entering PROCESS INSPECTOR shunt. 2. Stable ventricular size. 3. No acute ischemia or hemorrhage. Dictated by: Dictated on workstation # [id number]
[2016-08-02] MEDS: AMITRIPTYLINE 10 MG (ELAVIL) TAB PO SCH (20:18)
[2016-08-02 23:25] VITALS: BP 144/86
[2016-08-03] VITALS (8 sets, daily range): BP systolic 122–144; BP diastolic 78–90
--- NOTE | 2016-08-03 00:09 | NUR ---
Noted that pt ambulated to public bathroom. Asked pt if he needed assistance and why he didn't use the bathroom in his room. Pt states "I just needed to use the bathroom and this was the closest one. I must have been a little disoriented." Neuros checked; no abnormalities. Pt able to state name, , stead upon ambulation, knows that he is at [facility]. Denies other needs. Will continue to monitor closely.
[2016-08-03 06:03] LABS: BASOPHILS % (AUTO) 0 % (0-2); EOSINOPHILS # (AUTO) 0.3 10^3uL; EOSINOPHILS % (AUTO) 4 % (0-4); LYMPHOCYTES # (AUTO) 1.6 X10^3; MEAN CORPUSCULAR HEMOGLOBIN 30.1 PG (26.0-34.0); MEAN CORPUSCULAR HGB CONC 33.8 g/dL (31.0-37.0); MEAN CORPUSCULAR VOLUME 89 FL (80-100); MEAN PLATELET VOLUME 8.6 FL (6.0-9.5); MONOCYTES # (AUTO) 0.8 X10^3; MONOCYTES % (AUTO) 11 % (3-11); NEUTROPHILS # (AUTO) 5.2 X10^3; NEUTROPHILS % (AUTO) 65 % (51-67); PLATELET COUNT 439 10^3uL (150-450); WHITE BLOOD COUNT 7.98 10^3uL (4.0-11.0)
--- NOTE | 2016-08-03 06:28 | NUR ---
Pt rests well since midnight. Denies c/o. IVF infusing at 75 ml/hr. Pt alert and oriented. Remains NPO for speech eval per orders.
[2016-08-03 06:47] LABS: ALBUMIN 2.8 g/dL (3.4-5.0); ANION GAP 11.1 MEQ/L (3-15); MAGNESIUM* 1.9 mg/dL (1.6-2.3); PHOSPHORUS 3.8 mg/dL (2.4-4.9)
[2016-08-03] MEDS: POLYETHYLENE GLYCOL 17 GM (MIRALAX) PACKET PO SCH (08:34)
[2016-08-03] MEDS: PANTOPRAZOLE IV 40 MG in SODIUM CHLORIDE FLUSH 10 ML IV SCH (08:37)
[2016-08-03] MEDS: CLOPIDOGREL 75 MG (PLAVIX) TAB PO SCH (08:38)
[2016-08-03] MEDS: guaiFENesin ER 600 MG (MUCINEX) TAB PO SCH ×2 (08:38→21:00)
[2016-08-03] MEDS: ASPIRIN 81 MG CHEW (CHILDREN'S ASA) PO SCH (08:38)
[2016-08-03] MEDS: ENOXAPARIN 40 MG/0.4 ML (LOVENOX) SYR SC SCH (08:38)
[2016-08-03] MEDS: PROTEASE PO SCH ×5 (08:39→18:21)
[2016-08-03] MEDS: NICOTINE 21 MG (NICODERM) PATCH TD SCH (08:39)
[2016-08-03] MEDS: LIPASE PO SCH ×5 (08:39→18:21)
[2016-08-03] MEDS: AMYLASE PO SCH ×5 (08:39→18:21)
[2016-08-03] MEDS: PATCH REMOVAL TOP SCH (08:42)
--- NOTE | 2016-08-03 09:02 | Progress Note-A/P (E) ---
Progress Note Subjective: Patient is up to side of bed. His is at bedside. Patient's pain persists , is very similar to his chronic abdominal pain, however he reports this pain is somewhat worse than typical. Discussed care and findings. His recent swallowing issue is not new, the patient has been struggling with this for years. Objective: Current Medications Acetaminophen 650 mg Q6H PRN PO Ondansetron 4 mg Q6H PRN IV Promethazine Q6H PRN IV Enoxaparin 40 mg DAILY SC Pantoprazole DAILY IV Amitriptyline 10 mg HS PO Clopidogrel 75 mg DAILY PO Nitroglycerin 0.4 mg Q4H PRN SL Fentanyl 75 mcg Q72H TD Albuterol Sulfate Hfa Cc 1-2 PUFFS Q4H PRN IH Aspirin 81 mg DAILY PO Polyethylene Glycol 17 gm DAILY PO Docusate 100 mg BID PRN PO Magnesium Hydroxide 30 ml QID PRN PO Nicotine 21 mg DAILY TD Al Hydrox/Mg Hydrox/Simethicone 30 ml Q4H PRN PO Guaifenesin 1,200 mg BID PO Hydromorphone 1-2 mg Q2H PRN IV Amylase/Lipase/ Protease 5,000 Dr Capsule 4 each TIDWM PO and 2 each TID PRN PO Vital Signs Date Time Temp Pulse Resp B/P Pulse Ox O2 Delivery O2 Flow Rate FiO2 08/03/16 08:00 98.3 92 20 124/78 95 Room air 08/01/16 00:00 0.00 I & O Past 24 hrs 08/03/16 07:00 Intake Total 3298 ml Output Total 3065 ml Balance 233 ml Intake Oral 1346 ml IV Total 1952 ml Output Urine Total 2825 ml Emesis 240 ml Physical Exam General--Awake and alert. No distress. HEENT--Normocephalic. MMM in oral cavity. Lungs--Clear to auscultation bilaterally. Nonlabored respirations. Heart--RRR. Abdomen--Normal bowel sounds. Soft. Nondistended. Nontender. Extremities--No edema to lower extremities. Past 24 hour Lab Results 08/03/16 05:55 Laboratory Results Past 24 Hrs 08/03/16 05:55: Albumin 2.8, Anion Gap 11.1, Basophils # (Auto) 0.0, Basophils (%) (Auto) 0, Blood Urea Nitrogen 6, Calcium Level 8.4, Carbon Dioxide Level 26, Chloride Level 108, Creatinine 0.85, Eosinophils # (Auto) 0.3, Eosinophils (%) (Auto) 4, Estimat Glomerular Filtration Rate 111.6, Estimated GFR (Non- 92.3, Glucose Level 82, Hematocrit 34.00, Hemoglobin 11.5, Lipase 118, Lymphocytes # (Auto) 1.6, Lymphocytes (%) (Auto) 20, Magnesium Level 1.9, Mean Corpuscular Hemoglobin 30.1, Mean Corpuscular Hemoglobin Concent 33.8, Mean Corpuscular Volume 89, Mean Platelet Volume 8.6, Monocytes # (Auto) 0.8, Monocytes (%) (Auto) 11, Neutrophils # (Auto) 5.2, Neutrophils (%) (Auto) 65, Phosphorus Level 3.8, Platelet Count 439, Potassium Level 3.3, Red Blood Count 3.82, Red Cell Distribution Width 13.6, Sodium Level 142, White Blood Count 7.98 Imaging Results 07.31.16 Abdominal film IMPRESSION: No acute-appearing abnormality. 07.31.16 CT Abd/pelvis IMPRESSION: Features suggest mild active pancreatitis, distal body and tail without ascites or acute fluid collection. Improvements in fatty liver with no biliary dilatation. Fluid in the stomach as well as fluid in the large bowel. The large bowel showing questionable findings of mucosal hyperenhancement. Mild colitis could not be excluded. No obstruction, no free air. No findings suggestive of gastric outlet obstruction. 08.02.16 CT Head IMPRESSION: 1. Stable-appearing right-entering IMPORT EXPORT AGENT shunt. 2. Stable ventricular size. 3. No acute ischemia or hemorrhage. Assessment/Plan Acute on Chronic Pancreatitis Imaging noted above. BISAP 0. Bowel rest, IVF, treat pain and nausea. Lipase has normalized. Pain is improving. Resumed pancreatic enzymes. Advancing diet as tolerated. Abdominal Pain Improving. Hydromorphone PRN. Received ketorolac. Note he has chronic pain meds including fentanyl patch. Nausea/Vomiting Improving with ondansetron and promethazine. Thrombocytosis Chronic. Observe. Normalized today. URI Supportive care. Guaifenesin, nasal saline spray, Mentholatum ointment. Dysphagia CT head showed no evidence of CVA. This is not a new issue for him. ST recommended mechanical soft with thin liquids. Tobacco abuse Nicotine patch. 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 PVD Restarting home clopidogrel and aspirin when tolerating po. COPD Continue home albuterol. Insomnia Continue home amitriptyline when tolerating po. GERD/Gilman's Esophagus Sub pantoprazole for famotidine. Hypertriglyceridemia Continue home fenofibrate, flaxseed oil, and omega 3. Esophageal Spasm Nitro PRN per home dose. Chronic Abdominal Pain Fentanyl patch. FEN IVF. Peripheral IV. NPO. Possible advance to CLD 08/02. Electrolytes--mild hypoK, replacing. Prophylaxis Enoxaparin Code Status Full Code. Dispo Inpatient, expecting 3 day stay. YOBANI STEELE MD Aug 03, 2016 09:02
[2016-08-03] MEDS ORDERED: POTASSIUM CHLORIDE ER 20 MEQ TABLET PO ONE (09:05)
[2016-08-03] MEDS ORDERED: POTASSIUM CHLORIDE ORAL SOLUTION 20 MEQ/15 ML (KCL) UDC PO SCH (09:45)
[2016-08-03] MEDS: HYDROmorphone 2 MG/ML (DILAUDID) 1 ML SYRINGE IV PRN ×4 (10:13→20:14)
--- NOTE | 2016-08-03 10:13 | NUR ---
PRN Dilaudid given at this time for c/o abd pain rated 6/10. Denies other needs.
--- NOTE | 2016-08-03 10:33 | NUR ---
Pt's states his GI appt has been changed to [place] Aug 11, [address] Williamson and Cuca.
--- NOTE | 2016-08-03 12:43 | NUR ---
MULTIDISCIPLINARY MTG/DR. STEELE: Pt. started on clear liquids. This morning he had a little pain after having clears and backed off. Pt. feels like this is just his chronic pain. Pt. fluids are still running since he is not consuming much. Pt. is receiving Diluadid 2mg every 4-6 hours and Toradol for pain. No discharge needs identified at this time.
--- NOTE | 2016-08-03 12:59 | ST Bedside Swallow Assmt (E) ---
Summary-S/S of Dysphagia Summary-S/S of Dysphagia Displayed Signs & Symptoms Patient demonstrated proper laryngeal, and velar elevation. He drank thin liquids with mild throat clearing. Patient ate solids with mild complaints of getting stuck. Patient was instructed to take a drink of water, and it cleared. Recommend mechanical soft diet with ground meat and gravy, and thin liquids. Recommended to patient to alternate solids with liquids, and if the residue still does not clear to turn head each way and swallow to clear. Initial Review Service Date/Time 08/03/16, 12:48 Primary Diagnosis: (1) Acute on chronic pancreatitis ICD Code: K85.90 Treatment Diagnosis: (1) Dysphagia ICD Code: R13.10 Onset Date: 08/02/16 SOC Date: Aug 03, 2016 Precautions Precaution/Isolation: Standard Precautions Fall Level: No Risk 0-24 Resuscitation Status: Full Code Initial Assessment Reason for Referral: Evaluation and Treat Pertinent Medical History: COPD Rehabilitation Potential: Good Rehab Potential Based On recent onset Observation/Problem/Intake Observation:Status & Abilities Independently Feeds Self: Yes Ambulates Independently: Yes On mechanical ventilator/time: No Alert: Yes Cooperative: Yes Aware of difficulty: Yes Poor posture/positioning: No Reports Problem: Food/Swallow Problems: liquid>thicker foods: No Problem: thicker foods>Liquids: No Problem with swallowing pills: Yes Feeling lump in throat: No Pain with swallowing: No Wet/gugly voice after swallow: No Increased phlegm/mucus: No Pocketing/finding food: No How long problem exist: Months Problem occurred: Gradually Dysphyagia Assessment Oral-Motor Evaluation Endentuious: No Dentures in place for eval: No Natural upper teeth: Yes Natural lower teeth: Yes Dental cavities apparent: No Wears dentures when eating: No Inflammation around teeth: No Missing teeth: No Teeth decayed/discolored: No Jaw Assesment Open & closes jaw: WNL Opens mouth adequately: WNL Lateralizes the jaw: WNL Opens & closes w mild pressure: WNL Rapidly opens & closes mouth: WNL Labial Function Lips closure at rest: WNL Retraction-smile: WNL Lip-round up: WNL Lip smacking: WNL Rapid closure: WNL Strength-tongue depressor remv: WNL Holds air in cheeks: WNL Protussion-Pucker: WNL Texture-Thin Liquid Texture-Thin Liquid Amount of thin liquid: Cup (Mild throat clearing) Texture-Soft/Regular Texture Regular/Solid (Mild pharyngeal residue, cleared with a thin liquid) POC POC ST Plan: Oral function evalualtion, Oral function therapy Frequency of ST: Five times weekly Duration of ST: While on Acute Care Therapy to include: Therapeutic activities Aware of Dx and Prognosis: Yes Aware of Risk & Benefit: Yes Goals Discussed/Agreed: Yes Short Term Goals Short Term Goals 1. Patient to complete pharyngeal exercises independently. 2. Patient to report decreased pharyngeal residue with solids. STG Time Frame: 2 Weeks Coding Time In: 1230 Time Out: 1249 Total Minutes: 19 CPT Codes / Units: 85213 Dysphagia therapy, [address] TED MURPHY SENIOR UI SOFTWARE ENGINEER Aug 03, 2016 12:59
--- NOTE | 2016-08-03 18:30 | NUR ---
Pt has sat up in bed playing games and coloring with his this afternoon. NS @ 75mL/hr infusing with no difficulty. Pt will call for assistance. Has ambulated in halls with on occasion this shift. Will call for needs.
[2016-08-03] MEDS: AMITRIPTYLINE 10 MG (ELAVIL) TAB PO SCH (21:00)
[2016-08-03] MEDS: ACETAMINOPHEN 325 MG TAB (TYLENOL) PO PRN (21:01)
--- NOTE | 2016-08-03 21:01 | NUR ---
Request Tylenool for pain unrelieved buy dilaudid. States take it at home for pain. Tylenol given. Also reports small amount of emesis earlier. Denies nausea at this time. Taking sips of water. States is normal for him to vomit at home.
--- NOTE | 2016-08-03 23:35 | NUR ---
Neuro check within normal limits. Pt. denies need for pain med at this time; pain rated "2". IVF replenished and infusing without difficulty-NS @ 75 cc/hr. Call light and H2O within reach. Pt. is pleasant and cooperative.
[2016-08-04 06:00] VITALS: BP 136/79
--- NOTE | 2016-08-04 06:00 | NUR ---
Neuro checks have remained within normal limits; no change in status. Pt. alert; denies need for pain med currently although states "it is still there". Pt. independent in room; call light and H2O within reach.
[2016-08-04 06:27] LABS: BASOPHILS % (AUTO) 1 % (0-2); EOSINOPHILS # (AUTO) 0.4 10^3uL; EOSINOPHILS % (AUTO) 5 % (0-4); LYMPHOCYTES # (AUTO) 1.6 X10^3; MEAN CORPUSCULAR HGB CONC 33.8 g/dL (31.0-37.0); MEAN CORPUSCULAR VOLUME 89 FL (80-100); MEAN PLATELET VOLUME 8.8 FL (6.0-9.5); MONOCYTES % (AUTO) 13 % (3-11); NEUTROPHILS # (AUTO) 4.3 X10^3; NEUTROPHILS % (AUTO) 59 % (51-67); PLATELET COUNT 468 10^3uL (150-450); WHITE BLOOD COUNT 7.31 10^3uL (4.0-11.0)
[2016-08-04 06:48] LABS: ANION GAP 12.2 MEQ/L (3-15); MAGNESIUM* 1.9 mg/dL (1.6-2.3); PHOSPHORUS 3.8 mg/dL (2.4-4.9)
[2016-08-04 07:52] VITALS: BP 142/81
[2016-08-04] MEDS: PROTEASE PO SCH ×2 (07:52→12:44)
[2016-08-04] MEDS: AMYLASE PO SCH ×2 (07:52→12:44)
[2016-08-04] MEDS: LIPASE PO SCH ×2 (07:52→12:44)
[2016-08-04] MEDS: PATCH REMOVAL TOP SCH ×2 (09:00→09:52)
[2016-08-04] MEDS: CLOPIDOGREL 75 MG (PLAVIX) TAB PO SCH (09:49)
[2016-08-04] MEDS: PANTOPRAZOLE IV 40 MG in SODIUM CHLORIDE FLUSH 10 ML IV SCH (09:49)
[2016-08-04] MEDS: guaiFENesin ER 600 MG (MUCINEX) TAB PO SCH (09:49)
[2016-08-04] MEDS: ASPIRIN 81 MG CHEW (CHILDREN'S ASA) PO SCH (09:49)
[2016-08-04] MEDS: ENOXAPARIN 40 MG/0.4 ML (LOVENOX) SYR SC SCH (09:49)
[2016-08-04] MEDS: POLYETHYLENE GLYCOL 17 GM (MIRALAX) PACKET PO SCH (09:50)
[2016-08-04] MEDS: fentaNYL PATCH 75 MCG (DURAGESIC) TD SCH (09:50)
[2016-08-04] MEDS: NICOTINE 21 MG (NICODERM) PATCH TD SCH (09:50)
[2016-08-04 12:00] VITALS: BP 142/81
[2016-08-04] MEDS: ACETAMINOPHEN 325 MG TAB (TYLENOL) PO PRN (12:44)
[2016-08-04] MEDS: HYDROmorphone 2 MG/ML (DILAUDID) 1 ML SYRINGE IV PRN (13:49)
--- NOTE | 2016-08-04 15:13 | Discharge Instructions (E) ---
Discharge Instructions Instructions * You were evaluated and treated for a flare of your chronic pancreatitis. Continue to gradually advance your diet to low fat foods. * Quitting smoking is one of the best things you can do for your health. Review the provided handout for details. Activity Instructions As tolerated. Doctor's Appointment Follow-up with your primary care doctor in 3-5 days. Discharge Diet: Gladys (Low fat) FRANCISCA WILSON MD Aug 04, 2016 15:13
[2016-08-04 15:26] VITALS: BP 155/91
--- NOTE | 2016-08-04 16:12 | NUR ---
Dismissed to home per amb accompanied by Bjorn MIXON. States called a friend for a ride since does not get off work untill 1800. Had attempted to call . Skin w/p/d. Resp reg and unlabored. Alert and oriented x4 .
--- NOTE | 2016-08-09 15:44 | Discharge Summary (E) ---
Discharge Summary (E) Admit Date/Time Jul 31, 2016 at 14:30 Discharge Date/Time Aug 04, 2016 at 16:12 Admitting Provider Demetrius Elliott MD Primary Care Provider Winston Rizo MD Attending Provider Demetrius Elliott MD Consulting Provider History and Present Illness See History and Physical for complete details. Peter Bryan is a 61 year old male admitted from ED 07/31 with recurrent acute pancreatitis in the setting chronic pancreatitis. He had elevated WBC but did not meet SIRS criteria. He improved with standard therapy for pancreatitis including bowel rest, pain and nausea medication. His diet was gradually advanced. Pain returned to his baseline and he was discharged home in improved, stable condition. Hospital Course and Treatment * Acute on Chronic Pancreatitis: BISAP 0. Bowel rest, IVF, treated pain and nausea. Resumed pancreatic enzymes when taking PO. * Abdominal Pain: Improved. Ketorolac scheduled, hydromorphone PRN. Noted he has chronic pain meds including fentanyl patch. * Nausea/Vomiting: Ondansetron, promethazine. * Thrombocytosis: Chronic. Observed. * URI: Supportive care. Guaifenesin, nasal saline spray, Mentholatum ointment. CHRONIC ISSUES * Tobacco abuse: Nicotine patch. Counseled cessation. * PVD: Clopidogrel, aspirin * COPD: Albuterol * Insomnia: Amitriptyline * GERD, Gilman's Esophagus: Sub pantoprazole for famotidine. Resumed home regimen at discharge. * Hypertriglyceridemia: Fenofibrate, flaxseed oil, omega 3. * BPH: History of taking tamsulosin * Esophageal Spasm: Nitro PRN. * Insomnia: Amitriptyline * Chronic Abdominal Pain, Chronic Pancreatitis: Fentanyl patch. Pancrelipase. Discharge Physicial Exam General Vital Signs Date Time Temp Pulse Resp B/P Pulse Ox O2 Delivery O2 Flow Rate FiO2 08/04/16 15:26 98.6 80 16 155/91 97 Room air 08/01/16 00:00 0.00 Discharge weight: 77.7 kg GEN: Awake, alert, oriented, NAD at present. HEENT: EOMI, PERRL, dry oral mucosa. Nasal congestion. CV: RRR S1 S2 normal with no murmur LUNGS: CTA B with diminished bases, no R/R/W. ABD: Soft, no distension. Non-tender. Tolerates exam well. Active bowel sounds. EXTR: No C/C/E. Normal peripheral pulses. INTEG: No rash. Bronze complexion. NEURO: No focal motor neuro deficit. Laboratory/Radiology Data WBC on admit 21.67, improved to 7.31 before discharge. Lipase peak was 843 on admit. CRP was 2.90 08/01. K dipped transiently to 3.3 08/03 but improved to 3.6 08/04. Details as follows: Laboratory Results-14 Days 07/31/16 10:25: Absolute Band Neutrophils 0.2, Alanine Aminotransferase (ALT/SGPT) 34, Albumin 4.4#, Albumin/Globulin Ratio 1.294, Alkaline Phosphatase 73, Amylase Level 134H , Anion Gap 14.9, Aspartate Amino Transf (AST/SGOT) 39H, BUN/Creatinine Ratio 9L , Band Neutrophils % 1, Basophils # (Auto) , Basophils # (Manual) 0.2, Basophils % (Manual) 1, Basophils (%) (Auto) , Blood Morphology Comment Normal, Blood Urea Nitrogen 11, C-Reactive Protein 1.20H, Calcium Level 9.8, Calcium/ Ionized Calcium Ratio 4.1, Calculated Osmolality 268L, Carbon Dioxide Level 30H , Chloride Level 98, Creatinine 1.27, Differential Total Cells Counted 100, Eosinophils # 0.2, Eosinophils # (Auto) , Eosinophils % (Manual) 1, Eosinophils (%) (Auto) , Estimat Glomerular Filtration Rate 70.2, Estimated GFR (Non- 58.1, Glucose Level 107, Hematocrit 43.90, Hemoglobin 15.5, Lipase 843H, Lymphocytes # 2.6, Lymphocytes # (Auto) , Lymphocytes % (Manual) 12L, Lymphocytes (%) (Auto) , Mean Corpuscular Hemoglobin 30.9, Mean Corpuscular Hemoglobin Concent 35.3, Mean Corpuscular Volume 88, Mean Platelet Volume 8.4, Monocytes # 1.3, Monocytes # (Auto) , Monocytes % (Manual) 6, Monocytes (%) (Auto) , Neutrophils # 17.1, Neutrophils # (Auto) , Neutrophils (% ) (Auto) , Platelet Count 631H, Potassium Level 3.7, Red Blood Count 5.02, Red Cell Distribution Width 14.2, Segmented Neutrophils % 79H, Sodium Level 139, Total Bilirubin 0.9#, Total Protein 7.8, White Blood Count 21.67H 07/31/16 13:20: Urine Bacteria None seen, Urine Bilirubin Negative, Urine Clarity Clear, Urine Collection Type Clean catch, Urine Color Yellow, Urine Glucose (UA) Negative, Urine Hyaline Casts Rare, Urine Ketones Negative, Urine Leukocyte Esterase Negative, Urine Nitrite Negative, Urine Protein TraceH, Urine RBC 0-2, Urine RBC (Auto) Negative, Urine Specific [place] 1.015, Urine Squamous Epithelial Cells 0-2, Urine Urobilinogen 0.2, Urine WBC None seen, Urine pH >9.0, Volume Urine Centrifuged 12 ml 07/31/16 13:35: Stool Occult Blood Negative 08/01/16 06:13: Albumin 3.1#L, Anion Gap 11.1, Basophils # (Auto) 0.0, Basophils (%) (Auto) 0, Blood Urea Nitrogen 14, C-Reactive Protein 2.90H, Calcium Level 8.5L, Carbon Dioxide Level 29, Chloride Level 105, Creatinine 1.09, Eosinophils # (Auto) 0.3 , Eosinophils (%) (Auto) 3, Estimat Glomerular Filtration Rate 83.8, Estimated GFR (Non- 69.2, Glucose Level 72#, Hematocrit 37.60L, Hemoglobin 12.7L, Lymphocytes # (Auto) 2.0, Lymphocytes (%) (Auto) 19L, Mean Corpuscular Hemoglobin 30.6, Mean Corpuscular Hemoglobin Concent 33.8, Mean Corpuscular Volume 91, Mean Platelet Volume 8.4, Monocytes # (Auto) 0.9, Monocytes (%) (Auto) 9, Neutrophils # (Auto) 7.1, Neutrophils (%) (Auto) 69H, Platelet Count 529H, Potassium Level 3.7, Red Blood Count 4.15L, Red Cell Distribution Width 14.1, Sodium Level 141, White Blood Count 10.37, Phosphorus Level 3.4# 08/03/16 05:55: Albumin 2.8L, Anion Gap 11.1, Basophils # (Auto) 0.0, Basophils (%) (Auto) 0, Blood Urea Nitrogen 6#L, Calcium Level 8.4L, Carbon Dioxide Level 26, Chloride Level 108, Creatinine 0.85, Eosinophils # (Auto) 0.3, Eosinophils (%) (Auto) 4, Estimat Glomerular Filtration Rate 111.6, Estimated GFR (Non- 92.3, Glucose Level 82, Hematocrit 34.00L, Hemoglobin 11.5L, Lipase 118, Lymphocytes # (Auto) 1.6, Lymphocytes (%) (Auto) 20, Magnesium Level 1.9, Mean Corpuscular Hemoglobin 30.1, Mean Corpuscular Hemoglobin Concent 33.8, Mean Corpuscular Volume 89, Mean Platelet Volume 8.6, Monocytes # (Auto) 0.8, Monocytes (%) (Auto) 11, Neutrophils # (Auto) 5.2, Neutrophils (%) (Auto) 65, Phosphorus Level 3.8, Platelet Count 439, Potassium Level 3.3L, Red Blood Count 3.82L, Red Cell Distribution Width 13.6, Sodium Level 142, White Blood Count 7.98 08/04/16 05:50: Albumin 3.0L, Anion Gap 12.2, Basophils # (Auto) 0.0, Basophils (%) (Auto) 1, Blood Urea Nitrogen 3L, Calcium Level 8.5L, Carbon Dioxide Level 24, Chloride Level 110H, Creatinine 0.87, Eosinophils # (Auto) 0.4, Eosinophils (%) (Auto) 5H , Estimat Glomerular Filtration Rate 108.7, Estimated GFR (Non- 89.8, Glucose Level 82, Hematocrit 34.90L, Hemoglobin 11.8L, Lymphocytes # (Auto ) 1.6, Lymphocytes (%) (Auto) 22, Magnesium Level 1.9, Mean Corpuscular Hemoglobin 30.0, Mean Corpuscular Hemoglobin Concent 33.8, Mean Corpuscular Volume 89, Mean Platelet Volume 8.8, Monocytes # (Auto) 1.0, Monocytes (%) (Auto ) 13H, Neutrophils # (Auto) 4.3, Neutrophils (%) (Auto) 59, Phosphorus Level 3.8 , Platelet Count 468H, Potassium Level 3.6, Red Blood Count 3.93L, Red Cell Distribution Width 13.7, Sodium Level 142, White Blood Count 7.31 IMAGING 07/31/16 ACUTE ABD SERIES INDICATION: Pain. FINDINGS: The lungs are clear. There is no evidence for pleural fluid, no free air beneath the diaphragms, no failure. The bowel gas pattern is unremarkable. There are postoperative changes in the right upper quadrant. IMPRESSION: No acute-appearing abnormality. 07/31/16 CT ABDOMEN/PELVIS W PROCEDURE: CT abdomen and pelvis with contrast. TECHNIQUE: Multiple contiguous axial images were obtained through the abdomen and pelvis after administration of intravenous contrast. INDICATION: Severe abdominal pain with history of pancreatitis. Exam compared to 03/02/2016. FINDINGS: There has been presumed recurrence of features of pancreatitis, most notably the distal body and tail although the severity of peripancreatic edema and pancreatic thickening are improved when compared to the prior. There is only slight thickening along the left lateral conal fascia with ectasia of the pancreatic duct diffusely. Fatty infiltration of liver noted but improved when compared to the previous exam. Some fluid within the stomach which was not grossly overdilated and no acute fluid collection or pseudocyst and there is no abdominopelvic ascites. Some fluid within the colonic lumen with the colonic mucosa showing mild hyperenhancement. Nonspecific colitis may be present. No large bowel wall thickening or pericolonic edema, however. Some scattered noninflamed sigmoid diverticuli. Infrarenal atherosclerotic aortic ectasia dilates to measure 2.4 cm just prior to its bifurcation without rupture or change. The urinary bladder unremarkable. The kidneys unobstructed and normal. There is no bile duct dilatation. No stones along the course of the nondilated extrahepatic common duct. IMPRESSION: Features suggest mild active pancreatitis, distal body and tail without ascites or acute fluid collection. Improvements in fatty liver with no biliary dilatation. Fluid in the stomach as well as fluid in the large bowel. The large bowel showing questionable findings of mucosal hyperenhancement. Mild colitis could not be excluded. No obstruction, no free air. No findings suggestive of gastric outlet obstruction. Discharge Disposition Discharged home. Instructions * You were evaluated and treated for a flare of your chronic pancreatitis. Continue to gradually advance your diet to low fat foods. * Quitting smoking is one of the best things you can do for your health. Review the provided handout for details. Activity Instructions As tolerated. Appointments Follow-up with your primary care doctor in 3-5 days. Discharge Diet: [place] (Low fat) Discharge Medications Continued Medications: Acetaminophen (Acetaminophen) 325 Mg Tablet 650 MG PO Q6H PRN PAIN Albuterol Sulfate (Proair HFA) 8.5 Gm Hfa.aer.ad 2 PUFF INH Q6H PRN SHORTNESS OF BREATH INHALER Amitriptyline HCl (Amitriptyline HCl) 25 Mg Tablet 25 MG PO HS TAB Aspirin (Aspirin) 81 Mg Tablet.dr 81 MG PO HS Calcium Carbonate/Mag Hydrox (Antacid 675-135 mg Tab Chew) 1 Each Tab.chew 1 TAB PO HS PRN HEARTBURN TAB.CHEW Clopidogrel Bisulfate (Clopidogrel) 75 Mg Tablet 75 MG PO DAILY Docusate Sodium (Colace) 100 Mg Capsule 100 MG PO BID Constipation Ref 0 CAP Fenofibrate (Fenofibrate) 160 Mg Tablet 160 MG PO DAILY Fentanyl (Fentanyl Patch 75mcg/hr) 75 Mcg/Hr Patch.td72 1 PATCH TD Q3D PATCH Ferrous Sulfate (Ferrous Sulfate) 325 Mg Tablet 325 MG PO DAILY TAB Flaxseed Oil (Flax Seed Oil) 1,000 Mg Capsule 1000 MG PO DAILY Fluticasone Propionate (Flonase Nasal [place] 50mcg/actuation) 16 Gm Naspr 1 SPRAYS NSEACH BID PRN CONGESTION Hydromorphone HCl (Dilaudid) 2 Mg Tablet 4 MG PO Q4H PRN PAIN Lipase/Protease/Amylase (Susana DR 36,000 Units Capsule) 1 Each Capsule.dr 2 CAP PO TIDWM Lipase/Protease/Amylase (Susana LOWE 36,000 Units Capsule) 1 Each Capsule.dr 1 CAP PO TID PRN SNACKS CAP Magnesium Hydroxide (Lucas' Milk of Magnesia) 400 Mg/5 Ml Oral.susp 30 ML PO DAILY ML Multivitamin W-Minerals/Lutein (Centrum Silver Ultra Men's Tab) 1 Each Tablet 1 TAB PO DAILY TAB Nitroglycerin (Nitroglycerin) 0.4 Mg Tab.subl 0.4 MG SL PRN ESOPHAGEAL SPASM [place] 3 Polyunsat Fatty Acids (Fish Oil) 1,000 Mg Cap 1000 MG PO HS CAP Ondansetron HCl (Zofran ODT) 4 Mg Tab.rapdis 4 MG PO Q4H PRN NAUSEA Ref 0 TAB Pantoprazole Sod (Protonix Tab) 40 Mg Tab 40 MG PO BID #60 TAB Potassium Chloride (Kaochlor Sf 20 mEq/15 ml) 30 Ml Liqd 20 MEQ PO DAILY Ranitidine HCl (Ranitidine HCl) 300 Mg Capsule 300 MG PO HS Follow up Follow up Referrals: Other Resource - 08/02/16 with Robert Williamson Md Appointment time is 12:20pm with Dr. Williamson. Discharge Diagnosis See list above. Problems: Copies to: End of Report . DEMETRIUS ELLIOTT MD Aug 09, 2016 15:43
== END 2016-08-04 16:12 | disposition home or self-care (01) | DRG 440 ==
LOC: ED 10:04 → MED/SURG 14:30
PROVIDERS: ADMIT Internal Medicine; ATTEND Internal Medicine
DX: K85.90 Acute pancreatitis without necrosis or infection, unspecified (principal); K86.1 Other chronic pancreatitis; J06.9 Acute upper respiratory infection, unspecified; R13.10 Dysphagia, unspecified; G89.29 Other chronic pain; D47.3 Essential (hemorrhagic) thrombocythemia; I73.9 Peripheral vascular disease, unspecified; J44.9 Chronic obstructive pulmonary disease, unspecified; I10 Essential (primary) hypertension; F17.200 Nicotine dependence, unspecified, uncomplicated; Z95.820 Peripheral vascular angioplasty status with implants and grafts
CPT/HCPCS: 36415; 70450; 74022; 74177; 80053; 80069; 81003; 81015; 82150; 83690; 83735; 85025; 86140; 94760; 96361; 96374; 96375; 96376; 99283; 99285

== ENCOUNTER → 2016-08-13 | Outpatient (REF) | payer OTHER, MEDICARE ==
[2016-08-13 12:21] LABS: BILIRUBIN,URINE Negative (Negative); COLOR,URINE Yellow; GLUCOSE, URINE (UA) Negative (Negative); LEUKOCYTE ESTERASE ,URINE Negative (Negative); UROBILINOGEN,URINE 0.2 mg/dL (0.2-1.0)
[2016-08-13 12:22] LABS: BASOPHILS % (AUTO) 1 % (0-2); CLARITY,URINE Slightly Cloudy; EOSINOPHILS # (AUTO) 0.2 10^3uL; EOSINOPHILS % (AUTO) 2 % (0-4); LYMPHOCYTES # (AUTO) 2.6 X10^3; MEAN CORPUSCULAR HEMOGLOBIN 30.1 PG (26.0-34.0); MEAN CORPUSCULAR HGB CONC 33.6 g/dL (31.0-37.0); MEAN CORPUSCULAR VOLUME 90 FL (80-100); MEAN PLATELET VOLUME 8.5 FL (6.0-9.5); MONOCYTES % (AUTO) 10 % (3-11); NEUTROPHILS # (AUTO) 5.9 X10^3; NEUTROPHILS % (AUTO) 60 % (51-67); PH,URINE >9.0 (5.0 - 8.0); WHITE BLOOD COUNT 9.82 10^3uL (4.0-11.0)
[2016-08-13 12:23] LABS: PLATELET COUNT 661 10^3uL (150-450)
== END ==
LOC: LAB 12:02
PROVIDERS: ATTEND Family Medicine
DX: D72.828 Other elevated white blood cell count (principal); D47.3 Essential (hemorrhagic) thrombocythemia
CPT/HCPCS: 81003; 85025

== ENCOUNTER → 2016-10-04 | Outpatient (REF) | payer OTHER, MEDICARE | LOC: LAB 16:15 | PROVIDERS: ATTEND Family Medicine | DX: K92.1 Melena (principal) | CPT/HCPCS: 85014; 85018 ==

== ENCOUNTER → 2016-10-11 | Outpatient (CLI) | payer OTHER, MEDICARE ==
[2016-10-11 10:20] LABS: BASOPHILS % (AUTO) 0 % (0-2); EOSINOPHILS # (AUTO) 0.6 10^3uL; EOSINOPHILS % (AUTO) 5 % (0-4); LYMPHOCYTES # (AUTO) 2.1 X10^3; MEAN CORPUSCULAR HEMOGLOBIN 29.9 PG (26.0-34.0); MEAN CORPUSCULAR HGB CONC 33.5 g/dL (31.0-37.0); MEAN CORPUSCULAR VOLUME 89 FL (80-100); MEAN PLATELET VOLUME 8.3 FL (6.0-9.5); MONOCYTES # (AUTO) 1.1 X10^3; MONOCYTES % (AUTO) 9 % (3-11); NEUTROPHILS # (AUTO) 8.7 X10^3; NEUTROPHILS % (AUTO) 69 % (51-67); PLATELET COUNT 511 10^3uL (150-450); WHITE BLOOD COUNT 12.54 10^3uL (4.0-11.0)
[2016-10-11 10:49] LABS: ALBUMIN 3.6 g/dL (3.4-5.0); ANION GAP 11.9 MEQ/L (3-15); CALCULATED IONIZED CALCIUM 4.5 mg/dL (3.8-4.6); TOTAL PROTEIN 6.5 g/dL (6.4-8.5)
== END ==
LOC: LAB 10:01
PROVIDERS: ATTEND Internal Medicine Hematology & Oncology
DX: K86.1 Other chronic pancreatitis (principal); E87.6 Hypokalemia; K92.1 Melena
CPT/HCPCS: 36415; 80053; 85025

== ENCOUNTER → 2016-11-12 | Outpatient (REF) | payer OTHER, MEDICARE ==
[~2016-11-12] MED LIST changes: +ALBU8.5H2 INH; +AMIT25TA9 PO; +CALC-894 PO; +DOCU-34 PO; +FENT1PAT10 TD; +FERR-74 PO; +FLUT16SP NSEACH; +HDR2T PO; +LIPA1CAP67 PO; +MULT-850 PO; +POTA20LI PO; +RANI300C PO; +[UNRECOGNIZED DRUG - CODE] PO
== END ==
LOC: LAB 10:24
PROVIDERS: ATTEND Family Medicine
DX: K86.1 Other chronic pancreatitis (principal)
CPT/HCPCS: 85014; 85018

== ENCOUNTER → 2016-12-01 | Outpatient (CLI) | payer MEDICARE, OTHER ==
--- NOTE | 2016-12-01 13:21 | Diagnostic Imaging Report ---
INDICATION: Fever. COMPARISON: 07/31/2016. FINDINGS: New ill-defined nodular focus of consolidation in the lingula. No pleural effusion or pneumothorax. Normal heart size. Normal pulmonary vasculature. IMPRESSION: New nodular focus of consolidation in the lingula is likely infectious in etiology given patient's history. Advise followup PA and lateral chest radiographs in four weeks after appropriate medical management to ensure resolution and exclude underlying pulmonary nodule. Dictated by: Dictated on workstation # [id number]
--- NOTE | 2016-12-01 17:02 | Diagnostic Imaging Report ---
INDICATION: Fever, history of pancreatic pseudocysts and previous Whipple procedure. TECHNIQUE: CT of the abdomen and pelvis obtained with IV contrast bolus and compared with 07/31/2016. FINDINGS: Visualized portions of the lung bases demonstrate some minimal scarring in the lingula. There is a nodule in the left lower lobe which was not seen on the prior study. This measures about 1.4 cm. There is no pleural fluid or free intraperitoneal air. There is a trace of pericardial fluid. The liver shows no focal lesion. Gallbladder is surgically absent. Spleen was not enlarged and showed no focal lesions. There is a small hiatal hernia. Adrenals appear unchanged compared to the prior study, with a left adrenal nodule measuring about 12 mm, similar to the prior study. Kidneys bilaterally are unremarkable. There are postop changes in the pancreatic head. There is no pancreatic mass or pseudocyst. The mild inflammatory changes about the pancreatic tail visualized on the prior study appear to have resolved. There is no retroperitoneal mass or adenopathy. There is no ascites or abnormal fluid collection. Visualized bowel loops show no overt obstruction. IMPRESSION: 1. Postop changes in the pancreatic head. There is no evidence of pseudocyst or abnormal fluid collection. The mild edema about the pancreatic tail visualized on the prior study has resolved. There is a trace of pericardial fluid as well as a small hiatal hernia. There is a stable left adrenal nodule. 2. There is some scarring or atelectasis in the lingula. There is a new apparent nodular density in the left lower lobe anteriorly measuring about 1.4 cm. It is not clear if this is inflammatory or neoplastic. Would suggest a follow CT chest in 1-2 months with further workup if this does not resolve. Dictated by: Dictated on workstation # [id number]
== END ==
LOC: RAD 11:20
PROVIDERS: ATTEND Physician Assistant Surgical
DX: K86.3 Pseudocyst of pancreas (principal); R50.81 Fever presenting with conditions classified elsewhere
CPT/HCPCS: 71020; 74177; Q9967

== ENCOUNTER → 2016-12-01 | Outpatient (REF) | payer OTHER, MEDICARE ==
[2016-12-01 12:20] LABS: BASOPHILS % (AUTO) 0 % (0-2); EOSINOPHILS # (AUTO) 0.1 10^3uL; EOSINOPHILS % (AUTO) 1 % (0-4); LYMPHOCYTES # (AUTO) 2.3 X10^3; MEAN CORPUSCULAR HEMOGLOBIN 30.3 PG (26.0-34.0); MEAN CORPUSCULAR VOLUME 89 FL (80-100); MEAN PLATELET VOLUME 8.7 FL (6.0-9.5); MONOCYTES # (AUTO) 0.9 X10^3; MONOCYTES % (AUTO) 7 % (3-11); NEUTROPHILS # (AUTO) 8.7 X10^3; NEUTROPHILS % (AUTO) 72 % (51-67); PLATELET COUNT 539 10^3uL (150-450)
[2016-12-01 12:21] LABS: BILIRUBIN,URINE Negative (Negative); COLOR,URINE Yellow; GLUCOSE, URINE (UA) Negative (Negative); LEUKOCYTE ESTERASE ,URINE Negative (Negative); UROBILINOGEN,URINE 0.2 mg/dL (0.2-1.0)
[2016-12-01 12:27] LABS: CLARITY,URINE Slightly Cloudy; PH,URINE >9.0 (5.0 - 8.0)
[2016-12-01 12:34] LABS: URINE CENTRIFUGED VOLUME 12 mL
[2016-12-01 12:35] LABS: AMORPHOUS SEDIMENT,UR 3+ /HPF; RBC,URINE None Seen /HPF
== END ==
LOC: LAB 11:04
PROVIDERS: ATTEND Physician Assistant Surgical
DX: R50.9 Fever, unspecified (principal)
CPT/HCPCS: 81003; 81015; 85025

== ENCOUNTER 2016-12-20 10:47 | Inpatient (IN) | payer OTHER ==
[~2016-12-20] VITALS: Ht 180.3 cm; Wt 79.5 kg
[2016-12-20] MEDS ORDERED: NS 100 ML (IVPB) BAG IV STA (11:06)
[2016-12-20] MEDS ORDERED: FENT1PAT11 TD (11:07)
[2016-12-20 12:03] LABS: MEAN CORPUSCULAR HEMOGLOBIN 30.5 PG (26.0-34.0); MEAN CORPUSCULAR HGB CONC 34.8 g/dL (31.0-37.0); MEAN CORPUSCULAR VOLUME 88 FL (80-100); MEAN PLATELET VOLUME 8.6 FL (6.0-9.5); PLATELET COUNT 536 10^3uL (150-450); WHITE BLOOD COUNT 20.38 10^3uL (4.0-11.0)
--- NOTE | 2016-12-20 12:04 | Diagnostic Imaging Report ---
Clinical indication: Patient with pain. Exam: Portable chest x-ray upright view. Comparisons: Chest x-ray dated 12/01/2016. Findings: Lungs/pleura: There is interval development of a small right lung base infiltrate. The remainder of the lungs are clear. There is no pneumothorax. There is no pleural effusion. Mediastinum: Unremarkable. Pulmonary vasculature: Unremarkable. Heart: Unremarkable. Bones/extrathoracic soft tissue: Unremarkable. Impression: Interval development of right lower lobe pneumonia. Dictated by: Dictated on workstation # [id number]
[2016-12-20 12:22] LABS: ALBUMIN 3.8 g/dL (3.4-5.0); ALKALINE PHOSPHATASE 65 U/L (38-126); ANION GAP 13.2 MEQ/L (3-15); BUN/CREATININE RATIO 14 (10-20); CALCULATED IONIZED CALCIUM 4.4 mg/dL (3.8-4.6); LIPASE* 67 U/L (23-300); MAGNESIUM* 1.8 mg/dL (1.6-2.3); TOTAL PROTEIN 6.7 g/dL (6.4-8.5)
[2016-12-20 12:24] LABS: BAND NEUTROPHILS % 1 % (0-6); EOSINOPHILS % 0 % (0-4); LYMPHOCYTES # 0.8 #; MONOCYTES % 5 % (3-11); RBC MORPH NORMAL (NORMAL); SEGMENTED NEUTROPHILS % 90 % (51-67); TOTAL CELLS COUNTED 100
[2016-12-20 12:31] LABS: BILIRUBIN,URINE Negative (Negative); CLARITY,URINE Clear; COLOR,URINE Yellow; GLUCOSE, URINE (UA) Negative (Negative); LEUKOCYTE ESTERASE ,URINE Negative (Negative); PH,URINE 8.5 (5.0 - 8.0); UROBILINOGEN,URINE 0.2 mg/dL (0.2-1.0)
[2016-12-20] MEDS ORDERED: PIPERACILLIN/TAZOBACTAM 4.5 GM in SODIUM CHLORIDE 100 ML IV SCH ×2 (12:40→14:24)
--- NOTE | 2016-12-20 13:22 | NUR ---
Attempted x 3 to start second IV line per Dr. Dasilva's request. Patient is uncooperative and jerks and moves arm when flashback obtained making it unable to thread the cannula. Dr. Vidya VELARDE's second IV.
[2016-12-20] MEDS ORDERED: VANCOMYCIN 1,000 MG in SODIUM CHLORIDE 250 ML IV ONE (14:00)
[2016-12-20] MEDS ORDERED: BISACODYL 10 MG SUPP (DULCOLAX) PR PRN (14:20)
[2016-12-20] MEDS ORDERED: MAG HYDROX/AL HYDROX/SIMETH 200-200-20/5 ML (MAG-AL PLUS) 30 ML UDC PO PRN (14:20)
[2016-12-20] MEDS ORDERED: MAGNESIUM HYDROXIDE 80MG/ML (MILK OF MAGNESIA) 30 ML UDC PO PRN (14:20)
[2016-12-20] MEDS ORDERED: ONDANSETRON 2 MG/ML (Z0FRAN) 2 ML VIAL IV PRN (14:20)
[2016-12-20] MEDS ORDERED: DOCUSATE SODIUM 100 MG (COLACE) CAP PO PRN (14:20)
--- NOTE | 2016-12-20 14:25 | NUR ---
Patient arrives to room 308 via wheelchair from ED accompanied by . Alert and oriented X3. Respirations even and mildly labored after ambulating to bed on roomair. Vital signs upon arrival= T- 99.1, P- 114, R- 24, BP- 94/73, 02- 96% on roomair. Reports right sided chest pain that is aggravated by cough and deep breathing. See admission for full assessment.
[2016-12-20 14:29] VITALS: BP 94/73
--- NOTE | 2016-12-20 14:50 | History and Physical (E) ---
History & Physical Admission Details Admit Date/Time December 20, 2016 at 13:50 Primary Care Provider Winston Rizo MD Subjective History of Present Illness Patient has been ill with fever and progressive malaise and cough, went to Dr. had ct of chest and labs and no info heard from physician office and patient continued to spike fever and in e.d. wbc 20K and temp 101. history of chronic post wipple procedure gut pain and takes fentanyl patch q 3 days and at 100mcg dose. He vomits with many food stuffs and has to be careful what he eats. PMH pancreatitis, alcohol abuse in the past not any more . unable to work due to chronic pain syndrome. PSH whipple procedure 1999 appendectomy date not recalled. FH no family histgory of metabolic or genetic illness parental history unknown one brother and sister two sisters living and in good health SH continues to smoke.l Allergies: Coded Allergies: Glxfras-Zlj-Krd Reductase Inhibitor (Verified Allergy, Intermediate, Hemorrhoids, bloody stools, 12/20/16) Uncoded Allergies: TAPE (Adverse Reaction, Mild, SKIN BREAKDOWN, 12/22/13) Review of Systems CONSTITUTION: HEENT: No change in vision or hearing. No sores in mouth, sore throat. CV: No chest pain, palpitations. PULM: see hpi positive cough minimal productive. GI: frequent post gi surgery n/v eats in restricted fashion : No dysuria. No blood in urine. MS: No new muscle or joint aches and pains. NEURO: No numbness or tingling. No weakness. Lightheadedness per the HPI. INTEG: No rashes, lesions, or sores. ENDO: No heat or cold intolerance. No polydipsia or polyuria. HEME/LYMPH: No easy bruising or bleeding. No swollen glands. PSYCH: No change in mood or behavior. Objective Vital Signs Date Time Temp Pulse Resp B/P Pulse Ox O2 Delivery O2 Flow Rate FiO2 12/20/16 14:29 99.1 114 16 96 Room air 12/20/16 10:50 150/72 Physical Exam Physical Exam General--Awake and alert.right chest pain with respiration heladio inhalation. HEENT--Normocephalic. MMM in oral cavity. Lungs-ronchi and wexpiratory wheezing noted right chest. . Heart--RRR. No murmurs. Abdomen--Normal bowel sounds. Soft. Nondistended. Nontender. Extremities--No edema. Laboratory Results Past 24 Hrs 12/20/16 11:25: Urine Bilirubin Negative, Urine Blood Negative, Urine Clarity Clear, Urine Collection Type Clean catch, Urine Color Yellow, Urine Glucose (UA) Negative, Urine Ketones Negative, Urine Leukocyte Esterase Negative, Urine Nitrite Negative, Urine Protein Negative, Urine Specific [place] 1.015, Urine Urobilinogen 0.2, Urine pH 8.5 12/20/16 11:30: Absolute Band Neutrophils 0.2, Alanine Aminotransferase (ALT/SGPT) 27, Albumin 3.8, Albumin/Globulin Ratio 1.310, Alkaline Phosphatase 65, Anion Gap 13.2, Aspartate Amino Transf (AST/SGOT) 41, BUN/Creatinine Ratio 14, Band Neutrophils % 1, Basophils # (Auto) , Basophils # (Manual) 0.0, Basophils % (Manual) 0, Basophils (%) (Auto) , Blood Morphology Comment Normal, Blood Urea Nitrogen 15, Calcium Level 9.7, Calcium/Ionized Calcium Ratio 4.4, Calculated Osmolality 271 , Carbon Dioxide Level 25, Chloride Level 105, Creatinine 1.07, Differential Total Cells Counted 100, Eosinophils # 0.0, Eosinophils # (Auto) , Eosinophils % (Manual) 0, Eosinophils (%) (Auto) , Estimat Glomerular Filtration Rate 85.6, Estimated GFR (Non- 70.7, Glucose Level 111, Hematocrit 40.80, Hemoglobin 14.2, Lactic Acid Level 1.1, Lipase 67, Lymphocytes # 0.8, Lymphocytes # (Auto) , Lymphocytes % (Manual) 4, Lymphocytes (%) (Auto) , Magnesium Level 1.8, Mean Corpuscular Hemoglobin 30.5, Mean Corpuscular Hemoglobin Concent 34.8, Mean Corpuscular Volume 88, Mean Platelet Volume 8.6, Monocytes # 1.0, Monocytes # (Auto) , Monocytes % (Manual) 5, Monocytes (%) ( Auto) , Neutrophils # 18.3, Neutrophils # (Auto) , Neutrophils (%) (Auto) , Platelet Count 536, Potassium Level 3.9, Red Blood Count 4.65, Red Cell Distribution Width 13.9, Segmented Neutrophils % 90, Serum Alcohol < 10.0, Sodium Level 139, Total Bilirubin 0.9, Total Protein 6.7, Troponin I < 0.012, White Blood Count 20.38 Imaging right lower hazy diffuse pneumonia Assessment/Plan to treat as CAP and begin antibiotic tonight and then rt in a.m. continue fentanyl patch at same dose when time to replace. FLUIDS iv fluids and hydration needed and begun now. Diet- soft mechanical as tolerated. Code Status-full DVT prophylaxis-scd Disposition- inpatilent , active clinical pneumonia non sepsis lactic acid negligible. End of Report . DAVIDSON JONES DO December 20, 2016 14:50
[2016-12-20] MEDS ORDERED: MAGNESIUM HYDROXIDE PO PRN (14:55)
[2016-12-20] MEDS ORDERED: CALCIUM CARBONATE PO PRN (14:55)
[2016-12-20] MEDS ORDERED: fentaNYL PATCH 100 MCG (DURAGESIC) TD SCH (14:55)
[2016-12-20] MEDS ORDERED: ACETAMINOPHEN 325 MG TAB (TYLENOL) PO PRN (14:55)
[2016-12-20] MEDS ORDERED: [UNRECOGNIZED DRUG - OTHER] PO PRN (14:55)
[2016-12-20] MEDS ORDERED: ONDANSETRON 4 MG (ZOFRAN) ORAL DISSOLVE TAB PO PRN (14:55)
[2016-12-20] MEDS ORDERED: ALBUTEROL HFA (VENTOLIN HFA) COMMON CANNISTER IH PRN (14:55)
[2016-12-20] MEDS: CLOPIDOGREL 75 MG (PLAVIX) TAB PO SCH (15:37)
[2016-12-20] MEDS: ACETAMINOPHEN 325 MG TAB (TYLENOL) PO PRN ×2 (15:37→23:49)
[2016-12-20 16:04] VITALS: BP 103/65
[2016-12-20] MEDS ORDERED: PROTEASE PO PRN ×2 (16:15)
[2016-12-20] MEDS ORDERED: AMYLASE PO PRN ×2 (16:15)
[2016-12-20] MEDS ORDERED: LIPASE PO PRN ×2 (16:15)
[2016-12-20] MEDS: cefTRIAXone SODIUM 1,000 MG in SODIUM CHLORIDE 50 ML IV SCH (16:27)
[2016-12-20] MEDS ORDERED: AZITHROMYCIN VIAL 500 MG in SODIUM CHLORIDE 250 ML IV SCH (17:30)
[2016-12-20] MEDS: ALBUTEROL 0.083% NEB SOLUTION 2.5 MG/3 ML VIAL INH SCH ×2 (17:48→23:11)
--- NOTE | 2016-12-20 17:51 | NUR ---
Pt found lying in bed on RA, SPO2 94%, HR 99, RR 18 and non labored. BS clear bilateral upper lobes and RML, slightly coarse bilateral lower lobes before and after 2.5 mg Albuterol via SVN.
[2016-12-20] MEDS: AMYLASE PO SCH ×2 (18:09)
[2016-12-20] MEDS: PROTEASE PO SCH ×2 (18:09)
[2016-12-20] MEDS: LIPASE PO SCH ×2 (18:09)
--- NOTE | 2016-12-20 18:12 | NUR ---
Patient sitting up at edge of bed consuming supper. PRN Tylenol provided at 1630 for c/o generalized aches and chest pain from cough. Patient reports pain has subsided. Denies SOA. IV antibiotic infusing without difficulty. Call light in reach.
[2016-12-20 19:17] VITALS: BP 101/59
[2016-12-20 19:18] VITALS: BP 98/59
--- NOTE | 2016-12-20 19:40 | NUR ---
Pt. resting in bed; alert & orientated; family in room. Plan of care reviewed; appropriate questions asked. Pt. exhibits occasional cough; respirations are even and unlabored on room air; SATS currently 94%. Pt. politely refuses SCD's; "I doubt I will be able to sleep with those things on". Pt. is ambulatory in room; walks occasionally. Call light and H2O within reach.
[2016-12-20] MEDS ORDERED: FAMOTIDINE 20 MG (PEPCID) TABLET PO SCH (21:00)
[2016-12-20] MEDS ORDERED: NON-FORMULARY MEDICATION 1 EA EA (Omega 3 Polyunsat Fatty Acids (Fish Oil) 1,000 MG) PO SCH (21:00)
[2016-12-20] MEDS ORDERED: NON-FORMULARY MEDICATION 1 EA EA (Ranitidine HCl 300 MG) PO SCH (21:00)
[2016-12-20] MEDS ORDERED: NON-FORMULARY MEDICATION 1 EA EA (Aspirin 81 MG) PO SCH (21:00)
[2016-12-20] MEDS ORDERED: OMEGA-3 FATTY ACIDS (FISH OIL) 500 MG CAPSULE PO SCH (21:00)
[2016-12-20] MEDS ORDERED: AMITRIPTYLINE 25 MG (ELAVIL) TAB PO SCH ×2 (21:00)
--- NOTE | 2016-12-20 23:49 | NUR ---
Tylenol 650 mg PO given for discomfort; pt. has been dozing off and on. NS infusing at 75 cc/hr at right forearm without difficulty; resp are even and unlabored on room air. Pt. is pleasant and cooperative. Call light and H2O within reach.
[2016-12-20 23:55] VITALS: BP 105/63
[2016-12-21] MEDS: ALBUTEROL 0.083% NEB SOLUTION 2.5 MG/3 ML VIAL INH SCH (05:52)
[2016-12-21] MEDS: ACETAMINOPHEN 325 MG TAB (TYLENOL) PO PRN (06:05)
--- NOTE | 2016-12-21 06:05 | NUR ---
Tylenol 650 mg PO given for pain rated "4". Pt. slept in intervals; coughing minimally; resp are unlabored at rest. IVF infusing without difficulty at right hand; call light and H2O within reach. Pt. is very pleasant and cooperative.
[2016-12-21] MEDS: LIPASE PO SCH ×2 (07:51)
[2016-12-21] MEDS: AMYLASE PO SCH ×2 (07:51)
[2016-12-21] MEDS: PROTEASE PO SCH ×2 (07:51)
[2016-12-21] MEDS ORDERED: MULTIVITAMIN W/MINERALS (THERAGRAN M) TABLET PO SCH (08:00)
--- NOTE | 2016-12-21 08:10 | NUR ---
NUTRITION ASSESSMENT Level 1 Patient: Peter Bryan Age/Sex: 61/M Date Screened: 12-21-16 Weight: 174.9#/79.5 kg Height: 71 inches Primary Diagnosis: RLL pneumonia Diet Order: mechanical soft Relevant labs: N/A Food allergies: N Nutrition Assessment Criteria Age over 80: N Body Mass Index (BMI) under 19: N Admission Screening Indicates Risk? 6 points Moderate/High Risk Diagnosis: 3 points TPN or PPN: N NPO or clear liquid diet: N Serum Glucose <70 or >180: N/A Hgb A1c >6.7: N/A Total: 9 points Risk Screen: __ Patient at low nutritional risk based on available data; reevaluate in 5-7 days __ Patient at moderate nutritional risk based on available data; reevaluate in 3-5 days _X_ Patient at high nutritional risk; complete Nutrition Assessment within 48 hours of admission.
[2016-12-21 08:22] VITALS: BP 104/58
[2016-12-21 08:36] LABS: BASOPHILS % (AUTO) 0 % (0-2); EOSINOPHILS # (AUTO) 0.2 10^3uL; EOSINOPHILS % (AUTO) 2 % (0-4); LYMPHOCYTES # (AUTO) 1.7 X10^3; MEAN CORPUSCULAR HEMOGLOBIN 29.9 PG (26.0-34.0); MEAN CORPUSCULAR HGB CONC 32.9 g/dL (31.0-37.0); MEAN CORPUSCULAR VOLUME 91 FL (80-100); MONOCYTES # (AUTO) 0.8 X10^3; MONOCYTES % (AUTO) 7 % (3-11); NEUTROPHILS # (AUTO) 9.2 X10^3; NEUTROPHILS % (AUTO) 77 % (51-67); PLATELET COUNT 416 10^3uL (150-450); WHITE BLOOD COUNT 11.93 10^3uL (4.0-11.0)
[2016-12-21] MEDS ORDERED: [UNRECOGNIZED DRUG - OTHER] PO SCH (09:00)
[2016-12-21] MEDS ORDERED: fentaNYL PATCH 100 MCG (DURAGESIC) TD SCH (09:00)
[2016-12-21] MEDS ORDERED: POTASSIUM CHLORIDE ER 20 MEQ TABLET PO SCH (09:00)
[2016-12-21] MEDS ORDERED: FERROUS SULFATE 325 MG (IRON) TABLET PO SCH (09:00)
[2016-12-21] MEDS ORDERED: POTASSIUM CHLORIDE ORAL SOLUTION 20 MEQ/15 ML (KCL) UDC PO SCH (09:00)
[2016-12-21] MEDS ORDERED: NON-FORMULARY MEDICATION 1 EA EA (Ferrous Sulfate 325 MG) PO SCH (09:00)
[2016-12-21] MEDS ORDERED: LUTEIN PO SCH (09:00)
[2016-12-21] MEDS ORDERED: MULTIVITAMIN W MINERALS PO SCH (09:00)
[2016-12-21] MEDS ORDERED: MAGNESIUM HYDROXIDE 80MG/ML (MILK OF MAGNESIA) 30 ML UDC PO SCH (09:00)
[2016-12-21] MEDS ORDERED: ASPIRIN 81 MG CHEW (LOW-DOSE) PO SCH (09:00)
[2016-12-21] MEDS ORDERED: DOCUSATE SODIUM 100 MG (COLACE) CAP PO SCH (09:00)
[2016-12-21] MEDS ORDERED: NON-FORMULARY MEDICATION 1 EA EA (Flaxseed Oil (Flax Seed Oil) 1,000 MG) PO SCH (09:00)
[2016-12-21] MEDS ORDERED: FENOFIBRATE 160 MG TABLET PO SCH (09:00)
[2016-12-21] MEDS ORDERED: PANTOPRAZOLE 40 MG (PROTONIX) TAB PO SCH (09:00)
[2016-12-21] MEDS ORDERED: CEFD300C PO (09:02)
--- NOTE | 2016-12-21 09:04 | Discharge Instructions (E) ---
Discharge Instructions Instructions Continue home medications as prescribed Contact your doctor for questions or concerns No smoking Activity Instructions As tolerates Doctor's Appointment Appt Dr Tadeo in 1 week Discharge Diet: Heart Healthy DAVIDSON JONES DO December 21, 2016 09:04
[2016-12-21] MEDS ORDERED: AZITHROMYCIN 250 MG TAB (ZITHROMAX) PO ONE (09:05)
--- NOTE | 2016-12-21 09:10 | Discharge Summary (E FT) ---
Discharge Summary (E FT) Admit Date December 20, 2016 at 13:50 Discharge Date December 21, 2016 Admitting Provider Davidson Jones DO Primary Care Provider Winston Rizo MD Attending Provider Davidson Jones DO Consulting Provider Hospital Course Summary History of Present Illness Patient has been ill with fever and progressive malaise and cough, went to Dr. had ct of chest and labs and no info heard from physician office and patient continued to spike fever and in e.d. wbc 20K and temp 101. history of chronic post whipple procedure gut pain and takes fentanyl patch q 3 days and at 100mcg dose. He vomits with many food stuffs and has to be careful what he eats. Vital Signs Date Time Temp Pulse Resp B/P Pulse Ox O2 Delivery O2 Flow Rate FiO2 12/21/16 08:22 97.9 94 16 104/58 94 Room air I & O Cumulative 12/20/16 12/21/16 Cumulative From/Thru 19:00 07:00 12/20/16 10:50 - 12/21/16 06:10 Intake Total 3689 ml 3689 ml Output Total 2150 ml 2150 ml Balance 1539 ml 1539 ml Allergies Coded Allergies Wjxgaxf-Jzn-Llo Reductase Inhibitor (Verified Allergy, Intermediate, Hemorrhoids, bloody stools, 12/20/16) Uncoded Allergies TAPE ( Adverse Reaction, Mild, SKIN BREAKDOWN, 12/22/13) Active Scripts Active Cefdinir 300 Mg Capsule 300 Mg PO BID Protonix Tab (Pantoprazole Sod) 40 Mg Tab 40 Mg PO BID Reported Fentanyl Patch 100mcg/hr (Fentanyl) 100 Mcg/Hr Patch.td72 1 Each TD NEEDED Dilaudid (Hydromorphone HCl) 2 Mg Tablet 4 Mg PO Q4H PRN Antacid 675-135 mg Tab Chew (Calcium Carbonate/Mag Hydrox) 1 Each Tab.chew 1 Tab PO HS PRN Colace (Docusate Sodium) 100 Mg Capsule 100 Mg PO BID Lucas' Milk of Magnesia (Magnesium Hydroxide) 400 Mg/5 Ml Oral.susp 30 Ml PO DAILY Ferrous Sulfate 325 Mg Tablet 325 Mg PO DAILY Centrum Silver Ultra Men's Tab (Multivitamin W-Minerals/Lutein) 1 Each Tablet 1 Tab PO DAILY Proair HFA (Albuterol Sulfate) 8.5 Gm Hfa.aer.ad 2 Puff INH Q6H PRN Zofran ODT (Ondansetron HCl) 4 Mg Tab.rapdis 4 Mg PO Q4H PRN Creon DR 36,000 Units Capsule (Lipase/Protease/Amylase) 1 Each Capsule.dr 1 Cap PO TID PRN Flonase Nasal Mobile 50mcg/actuation (Fluticasone Propionate) 16 Gm Naspr 1 Sprays NSEACH BID PRN Creon DR 36,000 Units Capsule (Lipase/Protease/Amylase) 1 Each Capsule.dr 2 Cap PO TIDWM Kaochlor Sf 20 mEq/15 ml (Potassium Chloride) 30 Ml Liqd 20 Meq PO DAILY Ranitidine HCl 300 Mg Capsule 300 Mg PO HS Amitriptyline HCl 25 Mg Tablet 25 Mg PO HS Acetaminophen 325 Mg Tablet 650 Mg PO Q6H PRN Aspirin 81 Mg Tablet.dr 81 Mg PO HS Flax Seed Oil (Flaxseed Oil) 1,000 Mg Capsule 1,000 Mg PO DAILY Fish Oil (Hollis 3 Polyunsat Fatty Acids) 1,000 Mg Cap 1,000 Mg PO HS Clopidogrel (Clopidogrel Bisulfate) 75 Mg Tablet 75 Mg PO DAILY Fenofibrate 160 Mg Tablet 160 Mg PO DAILY Nitroglycerin 0.4 Mg Tab.subl 0.4 Mg SL PRN Physical Exam General--Awake and alert- feels better, breathing well and no pain on right chest, eating ok, no vomiting HEENT--Normocephalic. MMM in oral cavity. Lungs-Clear anteriorly, no wheezes this am Heart--RRR. No murmurs. Abdomen--Normal bowel sounds. Soft. Nondistended. Nontender. Extremities--No edema. Laboratory Results Past 24 Hrs 12/20/16 11:25: Urine Bilirubin Negative, Urine Blood Negative, Urine Clarity Clear, Urine Collection Type Clean catch, Urine Color Yellow, Urine Glucose (UA) Negative, Urine Ketones Negative, Urine Leukocyte Esterase Negative, Urine Nitrite Negative, Urine Protein Negative, Urine Specific [place] 1.015, Urine Urobilinogen 0.2, Urine pH 8.5 12/20/16 11:30: Absolute Band Neutrophils 0.2, Alanine Aminotransferase (ALT/SGPT) 27, Albumin 3.8, Albumin/Globulin Ratio 1.310, Alkaline Phosphatase 65, Anion Gap 13.2, Aspartate Amino Transf (AST/SGOT) 41, BUN/Creatinine Ratio 14, Band Neutrophils % 1, Basophils # (Auto) , Basophils # (Manual) 0.0, Basophils % (Manual) 0, Basophils (%) (Auto) , Blood Morphology Comment Normal, Blood Urea Nitrogen 15, Calcium Level 9.7, Calcium/Ionized Calcium Ratio 4.4, Calculated Osmolality 271 , Carbon Dioxide Level 25, Chloride Level 105, Creatinine 1.07, Differential Total Cells Counted 100, Eosinophils # 0.0, Eosinophils # (Auto) , Eosinophils % (Manual) 0, Eosinophils (%) (Auto) , Estimat Glomerular Filtration Rate 85.6, Estimated GFR (Non- 70.7, Glucose Level 111, Hematocrit 40.80, Hemoglobin 14.2, Lactic Acid Level 1.1, Lipase 67, Lymphocytes # 0.8, Lymphocytes # (Auto) , Lymphocytes % (Manual) 4, Lymphocytes (%) (Auto) , Magnesium Level 1.8, Mean Corpuscular Hemoglobin 30.5, Mean Corpuscular Hemoglobin Concent 34.8, Mean Corpuscular Volume 88, Mean Platelet Volume 8.6, Monocytes # 1.0, Monocytes # (Auto) , Monocytes % (Manual) 5, Monocytes (%) ( Auto) , Neutrophils # 18.3, Neutrophils # (Auto) , Neutrophils (%) (Auto) , Platelet Count 536, Potassium Level 3.9, Red Blood Count 4.65, Red Cell Distribution Width 13.9, Segmented Neutrophils % 90, Serum Alcohol < 10.0, Sodium Level 139, Total Bilirubin 0.9, Total Protein 6.7, Troponin I < 0.012, White Blood Count 20.38 CBC BMP Last 24 Hrs 12/20/16 11:30 12/21/16 05:40 Imaging right lower hazy diffuse pneumonia Assessment/Plan Acute Respiratory distress- due to RLL Pneumonia Tobacco Abuse Chronic Pain Pancreatitis history s/p Whipple 2 years ago P: Home today Continue Omnicef 300 mg po BID x 10 days F/U Appt Dr Tadeo in 1 week. Continue home medications Discharge Disposition Home today F/U Dr Tadeo 1 week No Smoking New Medications: Cefdinir (Cefdinir) 300 Mg Capsule 300 MG PO BID Infection #20 Ref 0 CAP Continued Medications: Acetaminophen (Acetaminophen) 325 Mg Tablet 650 MG PO Q6H PRN PAIN Albuterol Sulfate (Proair HFA) 8.5 Gm Hfa.aer.ad 2 PUFF INH Q6H PRN SHORTNESS OF BREATH INHALER Amitriptyline HCl (Amitriptyline HCl) 25 Mg Tablet 25 MG PO HS TAB Aspirin (Aspirin) 81 Mg Tablet.dr 81 MG PO HS Calcium Carbonate/Mag Hydrox (Antacid 675-135 mg Tab Chew) 1 Each Tab.chew 1 TAB PO HS PRN HEARTBURN TAB.CHEW Clopidogrel Bisulfate (Clopidogrel) 75 Mg Tablet 75 MG PO DAILY Docusate Sodium (Colace) 100 Mg Capsule 100 MG PO BID Constipation Ref 0 CAP Fenofibrate (Fenofibrate) 160 Mg Tablet 160 MG PO DAILY Fentanyl (Fentanyl Patch 100mcg/hr) 100 Mcg/Hr Patch.td72 1 EACH TD NEEDED PATCH Ferrous Sulfate (Ferrous Sulfate) 325 Mg Tablet 325 MG PO DAILY TAB Flaxseed Oil (Flax Seed Oil) 1,000 Mg Capsule 1000 MG PO DAILY Fluticasone Propionate (Flonase Nasal Mobile 50mcg/actuation) 16 Gm Naspr 1 SPRAYS NSEACH BID PRN CONGESTION Hydromorphone HCl (Dilaudid) 2 Mg Tablet 4 MG PO Q4H PRN PAIN Lipase/Protease/Amylase (Susana LOWE 36,000 Units Capsule) 1 Each Capsule.dr 2 CAP PO TIDWM Lipase/Protease/Amylase (Susana LOWE 36,000 Units Capsule) 1 Each Capsule.dr 1 CAP PO TID PRN SNACKS CAP Magnesium Hydroxide (Lucas' Milk of Magnesia) 400 Mg/5 Ml Oral.susp 30 ML PO DAILY ML Multivitamin W-Minerals/Lutein (Centrum Silver Ultra Men's Tab) 1 Each Tablet 1 TAB PO DAILY TAB Nitroglycerin (Nitroglycerin) 0.4 Mg Tab.subl 0.4 MG SL PRN ESOPHAGEAL SPASM Hollis 3 Polyunsat Fatty Acids (Fish Oil) 1,000 Mg Cap 1000 MG PO HS CAP Ondansetron HCl (Zofran ODT) 4 Mg Tab.rapdis 4 MG PO Q4H PRN NAUSEA Ref 0 TAB Pantoprazole Sod (Protonix Tab) 40 Mg Tab 40 MG PO BID #60 TAB Potassium Chloride (Kaochlor Sf 20 mEq/15 ml) 30 Ml Liqd 20 MEQ PO DAILY Ranitidine HCl (Ranitidine HCl) 300 Mg Capsule 300 MG PO HS Follow up Instructions Continue home medications as prescribed Contact your doctor for questions or concerns No smoking Copies to: End of Report . DAVIDSON JONES DO December 21, 2016 09:10
[2016-12-21] MEDS: CLOPIDOGREL 75 MG (PLAVIX) TAB PO SCH (09:12)
[2016-12-21] MEDS: cefTRIAXone SODIUM 1,000 MG in SODIUM CHLORIDE 50 ML IV SCH (09:20)
--- NOTE | 2016-12-21 09:25 | NUR ---
Ceftriaxone given early due to planned dismissal and request by Kassie Moralez NP.
--- NOTE | 2016-12-21 09:53 | NUR ---
Discharge instructions reviewed. Patient voiced understanding. Awaits visit from pharmacy.
--- NOTE | 2016-12-21 10:13 | NUR ---
Reviewed discharge medications with patient. Provided patient handout information for new medications. No additional questions or concerns. Patient verbalized understanding of medications.
--- NOTE | 2016-12-21 10:15 | NUR ---
Parmacy in to review medication. IV site discontinued.
--- NOTE | 2016-12-21 10:17 | NUR ---
DC to home with . Per w/c to exit accompanied by staff to exit.
[2016-12-21] MEDS ORDERED: CEFDINIR 300 MG (OMNICEF) CAPSULE PO SCH (21:00)
[2016-12-24] MEDS ORDERED: PATCH REMOVAL TOP SCH (08:59)
== END 2016-12-21 10:17 | disposition home or self-care (01) | DRG 194 ==
LOC: EDUNIT# 10:47 → ED 10:49 → MED/SURG 13:50
DX: J18.9 Pneumonia, unspecified organism (principal); K86.1 Other chronic pancreatitis; G89.4 Chronic pain syndrome; R10.9 Unspecified abdominal pain; F17.200 Nicotine dependence, unspecified, uncomplicated; Z79.82 Long term (current) use of aspirin; Z79.02 Long term (current) use of antithrombotics/antiplatelets
CPT/HCPCS: 36415; 71010; 80048; 80053; 80320; 81003; 82150; 83605; 83690; 83735; 84484; 85025; 86140; 86850; 86900; 86901; 87040; 93005; 94640; 96365; 99283